=== PATIENT | male | born 1965 | race Caucasian/White ===

== ENCOUNTER 2016-07-17 19:21 | Emergency (ER) | payer MEDICAID ==
[~2016-07-17] VITALS: Ht 193 cm; Wt 139.0 kg
[~2016-07-17 19:21] MED LIST: BACL20TA; CARI350T; FURO40SO4 PO; IND20; LAS20; MORP30TA3; MORP60TA9 PO; SPIR100T31 PO; [UNRECOGNIZED DRUG - CODE] PO; [UNRECOGNIZED DRUG - REMARK]; [UNRECOGNIZED DRUG - REMARK]
[2016-07-17 19:36] VITALS: Ht 193 cm; Wt 139.0 kg
[2016-07-17] MEDS ORDERED: morphine 4 MG/ML VIAL IV STA (23:13)
[2016-07-17] MEDS ORDERED: ONDANSETRON 4 MG INJ IV STA (23:13)
[2016-07-17] MEDS ORDERED: SOD CHLORIDE 0.9% 1,000 ML IV STA (23:13)
[2016-07-17 23:44] LABS: ADD SCAN DIFF NO
[2016-07-17 23:46] LABS: ABNORMAL IP MESSAGE 1; BASOPHILS % 0.3 % (0.0-2.0); EOSINOPHILS # 0.1 10^3/ul (0.0-0.5); EOSINOPHILS % 2.2 % (0.0-7.0); HEMATOCRIT 38.2 % (42.0-52.0); HEMOGLOBIN 12.8 g/dl (14.0-18.0); LYMPHOCYTES # 0.6 10^3/ul (0.8-2.9); LYMPHOCYTES % 16.5 % (15.0-51.0); MEAN CORPUSCULAR HEMOGLOBIN 30.1 pg (29.0-33.0); MEAN CORPUSCULAR HGB CONC 33.5 g/dl (32.0-37.0); MEAN CORPUSCULAR VOLUME 89.9 fl (82.0-101.0); MEAN PLATELET VOLUME 11.4 fl (7.4-10.4); MONOCYTE # 0.4 10^3/ul (0.3-0.9); MONOCYTES % 9.7 % (0.0-11.0); NEUTROPHIL # 2.6 10^3/ul (1.6-7.5); PLATELET COUNT 77 10^3/UL (140-415); RED BLOOD COUNT 4.25 10^6/ul (4.70-6.10); RED CELL DISTRIBUTION WIDTH 16.5 % (11.5-14.5); WHITE BLOOD COUNT 3.7 10^3/ul (4.8-10.8)
[2016-07-17 23:56] LABS: ADD UMIC NO; URINE BILIRUBIN (Dip) NEGATIVE (NEGATIVE); URINE BLOOD (Dip) NEGATIVE (NEGATIVE); URINE COLOR LT. YELLOW (YELLOW); URINE GLUCOSE (Dip) >=1000 % (NEGATIVE); URINE KETONES (Dip) NEGATIVE (NEGATIVE); URINE LEUKOCYTE ESTERASE (Dip) NEGATIVE (NEGATIVE); URINE NITRITE (Dip) NEGATIVE (NEGATIVE); URINE TOTAL PROTEIN (Dip) NEGATIVE (NEGATIVE); URINE UROBILINOGEN (Dip) 0.2 E.U./dL (0.1-1.0)
[2016-07-18] LABS: ALBUMIN 3.6 g/dl (3.3-4.9); BILIRUBIN,INDIRECT 0.5 mg/dl (0-1.1); BILIRUBIN,TOTAL 0.5 mg/dl (0.2-1.3); CALCIUM 9.1 mg/dl (8.4-10.2); CREATININE 1.13 mg/dl (0.61-1.24); TOTAL PROTEIN 7.2 g/dl (6.1-8.1)
--- NOTE | 2016-07-18 00:29 | RADRPT ---
PROCEDURE: CT abdomen and pelvis without intravenous contrast. CLINICAL INDICATION: Pain. TECHNIQUE: CT of the abdomen/pelvis was performed utilizing axial images with reconstructions in s agittal and coronal planes. The administered radiation dose is CTDI 24 mGy, DLP 1608 mGy-cm. COMPARISON: 06/16/2007 FINDINGS: Visualized Chest: The visualized lung bases are clear. Abdomen: The pancreas, and adrenal glands are unremarkable. The liver has diffuse nodular contours compatib le with cirrhosis. There is marked splenomegaly. A stent is noted within the right hepatic vein, c ompatible with prior TIPS procedure. There is enlargement of the hepatic and superior mesenteric vei ns. Prior cholecystectomy is noted. There is trace perihepatic ascites. The kidneys are without hydronephrosis. No definite urinary calculi are seen. There is no evidence of bowel obstruction. The appendix is normal. No intra-abdominal free air is seen. There is no evidence of intra-abdominal adenopathy or free fluid. Pelvis: A lipoma is noted within the left gluteus medius muscle. There is no evidence of pelvic adenopathy or free fluid. The prostate and bladder are unremarkable. Osseous structures: Unremarkable. IMPRESSION: Cirrhotic liver with marked splenomegaly and trace ascites. Status post TIPS procedure. RPTAT: [facility] .Jordy Zimmerman MD, Date Time Electronically viewed and signed by .Jordy Zimmerman MD, on 07/18/2016 00:29 .T/
[2016-07-18] MEDS ORDERED: HYDR-906 PO (01:23)
[2016-07-18] MEDS ORDERED: ONDA-43 PO (01:23)
[2016-07-18] MEDS ORDERED: NAPR-688 PO (01:23)
--- NOTE | 2016-07-18 01:30 | ERD ---
ER Documentation Chief Complaint Date/Time DATE: 07/18/16 TIME: 01:26 Chief Complaint abd pain since yesterday HPI 50-year-old male presents emergency room with generalized abdominal pain that began yesterday. He also has mild nausea but no vomiting. Denies fever and chills. He does have a history of liver failure status post TIPS procedure. He denies diarrhea or constipation. States that aside from liver failure he has no other medical problems. He has not tried taking anything for the pain at home as he does not have any pain medication. He does request Dilaudid on initial history. Reviewed the patient's EMR he has been seen at this hospital and has a prior admission for narcotic overdose. ROS All systems reviewed and are negative except as per history of present illness. Medications Home Meds Active Scripts Ondansetron Hcl* (Zofran*) 4 Mg Tab, 4 MG PO Q4H Y for NAUSEA AND OR VOMITING, # 10 TAB Prov:JAIRO TEMPLE DO 07/18/16 Naproxen* (Naproxen*) 500 Mg Tablet, 500 MG PO BID Y for PAIN, #20 TAB Prov:JAIRO TEMPLE DO 07/18/16 Hydrocodone/Acetaminophen ([place] 5-325 Tablet) 1 Each Tablet, 1 EACH PO Q6, #14 TAB Prov:JAIRO TEMPLE DO 07/18/16 Reported Medications [ states no home meds per EMS] No Conflict Check 11/07/12 Furosemide* (Lasix* Liq) 40 Mg/4 Ml Solution, 40 MG PO PM 10/20/12 Spironolactone* (Spironolactone*) 100 Mg Tablet, 50 MG PO PM 10/20/12 Spironolactone* (Spironolactone*) 100 Mg Tablet, 100 MG PO AM 10/20/12 Morphine Sulfate (MORPHINE SULFATE) 60 Mg Tablet.er, 30 MG PO QID Y 10/20/12 Morphine Sulfate* (Regina*) 150 Mg Cap.er.pel, 150 MG PO TID 10/20/12 Propranolol Hcl* (Inderal*) 20 Mg Tab, 60 BID 10/20/12 Baclofen* (Baclofen*) 20 Mg Tablet, BID 10/20/12 Furosemide (Lasix) 20 Mg Tab, 60 AM 10/20/12 Carisoprodol* (Soma*) 350 Mg Tablet, TID 10/20/12 Morphine Sulfate (Morphine Sulfate ER) 30 Mg Tablet.er 10/20/12 [Pt Said He Has No More Meds] No Conflict Check 06/24/12 Allergies Allergies: Coded Allergies: No Known Drug Allergy (Verified Allergy, Unknown, 11/13/12) PMhx/Soc History of Surgery: Yes (cholecystectomy) Anesthesia Reaction: No Hx Neurological Disorder: Yes (cva) Hx Respiratory Disorders: No Hx Cardiac Disorders: Yes (htn) Hx Psychiatric Problems: No Hx Miscellaneous Medical Probl: Yes (end-stage liver failure/cirrhosis, seizures, DM, hypothryroid) Hx Alcohol Use: No Hx Substance Use: No Hx Tobacco Use: No Smoking Status: Never smoker Physical Exam Vitals Vital Signs Date Time Temp Pulse Resp B/P Pulse Ox O2 Delivery O2 Flow Rate FiO2 07/17/16 19:36 100.3 95 20 136/80 97 Physical Exam Const: [] No distress, obese Head: Atraumatic Eyes: Normal Conjunctiva ENT: Normal External Ears, Nose and Mouth. Neck: Full range of motion..~ No meningismus. Resp: Clear to auscultation bilaterally Cardio: Regular rate and rhythm, no murmurs Abd: Soft, non tender, very mild abdominal distention, tympanic. Normal bowel sounds Skin: No petechiae or rashes Ext: No cyanosis, trace pedal edema Neur: Awake and alert and oriented 3, no focal deficits Psych: Normal Mood and Affect Result Diagram: 07/17/16223407/17/162234 Results 24 hrs Laboratory Tests Test 07/17/16 22:35 07/17/16 22:40 White Blood Count 3.710^3/ul Red Blood Count 4.2510^6/ul Hemoglobin 12.8g/dl Hematocrit 38.2% Mean Corpuscular Volume 89.9fl Mean Corpuscular Hemoglobin 30.1pg Mean Corpuscular Hemoglobin Concent 33.5g/dl Red Cell Distribution Width 16.5% Platelet Count 7710^3/UL Mean Platelet Volume 11.4fl Neutrophils % 71.0% Lymphocytes % 16.5% Monocytes % 9.7% Eosinophils % 2.2% Basophils % 0.3% Nucleated Red Blood Cells % 0.0/100WBC Neutrophils # 2.610^3/ul Lymphocytes # 0.610^3/ul Monocytes # 0.410^3/ul Eosinophils # 0.110^3/ul Basophils # 0.010^3/ul Nucleated Red Blood Cells # 0.010^3/ul Sodium Level 139mmol/L Potassium Level 4.0mmol/L Chloride Level 110mmol/L Carbon Dioxide Level 20mmol/L Anion Gap 13 Blood Urea Nitrogen 13mg/dl Creatinine 1.13mg/dl Glucose Level 377mg/dl Calcium Level 9.1mg/dl Total Bilirubin 0.5mg/dl Direct Bilirubin 0.00mg/dl Indirect Bilirubin 0.5mg/dl Aspartate Amino Transf (AST/SGOT) 39IU/L Alanine Aminotransferase (ALT/SGPT) 38IU/L Alkaline Phosphatase 115IU/L Total Protein 7.2g/dl Albumin 3.6g/dl Globulin 3.60g/dl Albumin/Globulin Ratio 1.00 Lipase 285U/L Urine Color LT. YELLOW Urine Clarity CLEAR Urine pH 5.5 Urine Specific [place] <=1.005 Urine Ketones NEGATIVE Urine Nitrite NEGATIVE Urine Bilirubin NEGATIVE Urine Urobilinogen 0.2 E.U./dL Urine Leukocyte Esterase NEGATIVE Urine Hemoglobin NEGATIVE Urine Glucose >=1000% Urine Total Protein NEGATIVE Current Medications Medications (Trade) Dose Ordered Sig/Alesha Route PRN Reason Start Time Stop Time Status Last Admin Dose Admin Sodium Chloride (NS) 1,000 ml @ 1,000 mls/hr Q1H STAT IV 07/17/16 23:13 07/18/16 00:12 DC 07/17/16 23:25 Morphine Sulfate (morphine) 4 mg ONCE STAT IV 07/17/16 23:13 07/17/16 23:14 DC 07/17/16 23:25 Ondansetron HCl (Zofran Inj) 4 mg ONCE STAT IV 07/17/16 23:13 07/17/16 23:14 DC 07/17/16 23:25 Procedures/MDM Generalized abdominal pain with benign physical exam. No evidence for acute infection. I have low suspicion for SBP. Patient only has trace ascites and does have tympanic abdomen evidence of some gas although no signs of obstruction. Was given 4 mg of morphine as well as Zofran which resolved his nausea and improved his pain. Also given a liter of normal saline to help treat his diabetic hyperglycemia. Patient has very mild pancytopenia which is at baseline associated with his hepatic condition. We will discharge him with primary care follow-up in the next few days. Incidentally found on CT was a gluteal lesion. I printed his CAT scan results as well as laboratory to begin follow-up with his primary care doctor. Can discharge him with a few [place] as well as Zofran and naproxen for pain. Return to ER as needed. CT abdomen pelvis interpretation: Evidence of prior TIPS procedure, I see no obstruction, no free air, no abnormal fat stranding, no fractures Departure Diagnosis: Primary Impression: Abdominal pain Additional Impression: Hyperglycemia Condition: Stable Patient Instructions: Abdominal Pain Referrals: MAIKOL KRUGER MD (PCP) Additional Instructions: Call your primary care doctor TOMORROW for an appointment during the next 2-3 days.See the doctor sooner or return here if your condition worsens before your appointment time. JAIRO TEMPLE DO Jul 18, 2016 01:30
[2016-07-18 02:01] VITALS: BP 136/80; PULSE 69; RESP 20; TEMP 98.8
== END 2016-07-18 02:01 | disposition home or self-care (01) ==
LOC: E/R 19:21
DX: R10.84 Generalized abdominal pain (principal); E11.65 Type 2 diabetes mellitus with hyperglycemia; I10 Essential (primary) hypertension; E03.9 Hypothyroidism, unspecified; R11.0 Nausea
CPT/HCPCS: 36415; 74176; 80053; 81003; 83690; 85025; 96374; 96375; J2270; J2405; J7030; Z7502

== ENCOUNTER 2016-07-27 15:16 | Inpatient (IN) | payer MEDICAID ==
[~2016-07-27] VITALS: Ht 193 cm; Wt 138.5 kg
[~2016-07-27 15:16] MED LIST changes: +HYDR-906 PO; +NAPR-688 PO; +ONDA-43 PO
[2016-07-27] MEDS ORDERED: OCTREOTIDE 50 MCG in SOD CHLORIDE 0.9% 25 ML IVPB STA (16:25)
[2016-07-27] MEDS ORDERED: OCTREOTIDE 500 MCG in SOD CHLORIDE 0.9% 49 ML IV STA (16:25)
[2016-07-27] MEDS ORDERED: SOD CHLORIDE 0.9% 500 ML IV STA (16:25)
[2016-07-27] MEDS ORDERED: PANTOPRAZOLE IV 80 MG in SOD CHLORIDE 0.9% 100 ML IVPB STA (16:25)
[2016-07-27] MEDS ORDERED: PANTOPRAZOLE IV 80 MG in SOD CHLORIDE 0.9% 100 ML IV STA (16:25)
[2016-07-27 16:44] LABS: ABNORMAL IP MESSAGE 1; HEMATOCRIT 33.1 % (42.0-52.0); HEMOGLOBIN 11.3 g/dl (14.0-18.0); MEAN CORPUSCULAR HEMOGLOBIN 30.4 pg (29.0-33.0); MEAN CORPUSCULAR HGB CONC 34.1 g/dl (32.0-37.0); MEAN PLATELET VOLUME 11.1 fl (7.4-10.4); RED BLOOD COUNT 3.72 10^6/ul (4.70-6.10); RED CELL DISTRIBUTION WIDTH 16.4 % (11.5-14.5); WHITE BLOOD COUNT 6.3 10^3/ul (4.8-10.8)
[2016-07-27] MEDS ORDERED: FURO40TA4 PO (16:52)
[2016-07-27] MEDS ORDERED: LACT10SO5 PO (16:52)
[2016-07-27] MEDS ORDERED: PROP40TA4 PO (16:53)
[2016-07-27] MEDS ORDERED: GABA400C14 PO (16:54)
[2016-07-27] MEDS ORDERED: TRAZ150T65 PO (16:55)
[2016-07-27 16:58] LABS: ALBUMIN 3.4 g/dl (3.3-4.9)
[2016-07-27 16:59] LABS: INR 1.66; POTASSIUM 4.1 mmol/L (3.5-5.1); PROTIME 19.7 Sec (12.2-14.2); PT RATIO 1.5
[2016-07-27 17:00] LABS: PARTIAL THROMBOPLASTIN TIME 38.1 Sec (25.0-35.0)
[2016-07-27 17:01] LABS: ALBUMIN/GLOBULIN RATIO 0.97; BILIRUBIN,INDIRECT 2.4 mg/dl (0-1.1); BILIRUBIN,TOTAL 2.4 mg/dl (0.2-1.3); CREATININE 1.99 mg/dl (0.61-1.24); TOTAL PROTEIN 6.9 g/dl (6.1-8.1)
[2016-07-27 17:02] LABS: D-DIMER 1456.39 ng/ml (<460)
[2016-07-27] MEDS ORDERED: RIFA550T4 PO (17:02)
[2016-07-27 17:04] LABS: ADD SCAN DIFF YES
[2016-07-27] MEDS ORDERED: OXYC30TA64 PO (17:04)
[2016-07-27] MEDS ORDERED: METH10TA2 PO (17:06)
[2016-07-27 17:10] LABS: PLATELET COUNT 43 10^3/UL (140-415)
[2016-07-27 17:14] LABS: TROPONIN-I 0.026 ng/ml (0.00-0.12)
--- NOTE | 2016-07-27 18:40 | RADRPT ---
PROCEDURE: CT Chest. CLINICAL INDICATION: Hemoptysis TECHNIQUE: CT scan of the chest without contrast was performed on the [employer] [place] CT scanner at [facility]. Sagittal and coronal reformatted images were obtained from the axial [facility] images. The CTDIvol is 16.59 mGy and the DLP is 712.81 mGycm. One of the following 3 dose reduction techniques were used: Automated exposure control; adjustment of the mA and/or kV according to patient size; or use of iterative reconstruction technique. COMPARISON: Chest x-ray 11/11/2012 FINDINGS: The bilateral thyroid lobes are normal. The lungs are remarkable for multilobar alveolar infiltrates in the left upper greater than left low er greater than right lower lobes. No associated pleural effusions are present. The appearance of a 9 mm spiculated nodule is present in the right upper lobe. The mediastinum is unremarkable without evidence for mass or lymphadenopathy. The vascular structur es of the mediastinum are normal in course and caliber. Aortic vascular calcifications and coronary artery calcifications are present. The heart size is remarkable for moderate cardiomegaly without e vidence for pericardial thickening or effusion. The axillary regions, subpectoral regions, and supraclavicular regions are all unremarkable. The pat ient is status post TIPS procedure with portosystemic shunt noted. The patient is status post alvin cystectomy changes. Diffuse fatty infiltration of the liver is present with scalloped serosal surfa ce compatible with cirrhosis. No focal lesions are identified on this limited CT without intravenou s contrast. Splenomegaly is present. The visualized bilateral adrenal glands and imaged kidneys are normal. The imaged osseous structures demonstrate degenerative spondylosis. IMPRESSION: 1. Diffuse multilobar alveolar infiltrates compatible with pneumonia. Recommend follow-up until re solution. 2. 9 mm right upper lobe spiculated nodule suspicious for neoplasm or metastasis. Consider PET CT. 3. No evidence for pathologic lymphadenopathy. 4. Moderate cardiomegaly and atherosclerotic vascular disease 5. Hepatic cirrhosis and mild splenomegaly with TIPS present. A call report was made to Vahid Pacheco at 07/27/2016 6:38:39 PM following the completion of th e examination by the undersigned. RPTAT: [facility] .Caroline Blanc MD, MD Date Time Electronically viewed and signed by .Caroline Blanc MD, MD on 07/27/2016 18:40 .C/
[2016-07-27] MEDS ORDERED: CEFEPIME 2GM/50 ML (PMX) 50 ML IVPB STA (18:43)
[2016-07-27] MEDS ORDERED: ACETAMINOPHEN 500 MG TAB PO STA (18:43)
[2016-07-27] MEDS ORDERED: SODIUM CHLORIDE 0.9% 1L BAG IV* STA (18:43)
[2016-07-27] MEDS ORDERED: VANCOMYCIN 1 GM (PMX) 250 ML IVPB STA (18:43)
[2016-07-27] MEDS ORDERED: SOD CHLORIDE 0.9% 1,000 ML IV SCH (19:17)
--- NOTE | 2016-07-27 19:26 | ERA ---
ER Documentation Chief Complaint Date/Time DATE: 07/27/16 TIME: 19:19 Chief Complaint vomiting blood since morning x 4 , abd pain HPI This is a 50-year-old male who states he woke this morning and started coughing and gagging any says he threw up a small blood clot onto the floor. He said he subsequently began coughing more throughout the morning is coughing up some bloody sputum. He says he has had subjective fevers for the past 2 or 3 days with a cough mostly dry with occasional sputum production. He has no shortness of breath or chest pain. Patient is a liver cirrhosis patient with history of a TIPS procedure. He has also had his history of bleeding varices. He denies having any melena or abdominal pain. ROS All systems reviewed and are negative except as per history of present illness. Medications Home Meds Reported Medications Methadone Hcl* (Methadone*) 10 Mg Tab, 30 MG PO TID, TAB 07/27/16 Oxycodone Hcl* (Oxycontin*) 30 Mg Tab.sr.12h, 30 MG PO QID, TAB 07/27/16 Rifaximin* (Xifaxan*) 550 Mg Tablet, 550 MG PO BID, TAB 07/27/16 Trazodone Hcl* (Desyrel*) 150 Mg Tablet, 150 MG PO QHS Y for PRN, #30 TAB 07/27/16 Gabapentin* (Gabapentin*) 400 Mg Capsule, 400 MG PO TID, #90 CAP 07/27/16 Propranolol Hcl* (Propranolol Hcl*) 40 Mg Tablet, 40 MG PO BID, TAB 07/27/16 Furosemide* (Furosemide*) 40 Mg Tablet, 40 MG PO BID, TAB 07/27/16 Lactulose* (Lactulose*) 10 Gm/15 Ml Solution, 10 GM PO TID, ML 07/27/16 Discontinued Reported Medications [ states no home meds per EMS] No Conflict Check 11/07/12 Furosemide* (Lasix* Liq) 40 Mg/4 Ml Solution, 40 MG PO PM 10/20/12 Spironolactone* (Spironolactone*) 100 Mg Tablet, 50 MG PO PM 10/20/12 Spironolactone* (Spironolactone*) 100 Mg Tablet, 100 MG PO AM 10/20/12 Morphine Sulfate (MORPHINE SULFATE) 60 Mg Tablet.er, 30 MG PO QID Y 10/20/12 Morphine Sulfate* (Regina*) 150 Mg Cap.er.pel, 150 MG PO TID 10/20/12 Propranolol Hcl* (Inderal*) 20 Mg Tab, 60 BID 10/20/12 Baclofen* (Baclofen*) 20 Mg Tablet, BID 10/20/12 Furosemide (Lasix) 20 Mg Tab, 60 AM 10/20/12 Carisoprodol* (Soma*) 350 Mg Tablet, TID 10/20/12 Morphine Sulfate (Morphine Sulfate ER) 30 Mg Tablet.er 10/20/12 [Pt Said He Has No More Meds] No Conflict Check 06/24/12 Discontinued Scripts Ondansetron Hcl* (Zofran*) 4 Mg Tab, 4 MG PO Q4H Y for NAUSEA AND OR VOMITING, # 10 TAB Prov:JAIRO TEMPLE DO 07/18/16 Naproxen* (Naproxen*) 500 Mg Tablet, 500 MG PO BID Y for PAIN, #20 TAB Prov:JAIRO TEMPLE DO 07/18/16 Hydrocodone/Acetaminophen ([place] 5-325 Tablet) 1 Each Tablet, 1 EACH PO Q6, #14 TAB Prov:MAVERICKJAIRO DO 07/18/16 Allergies Allergies: Coded Allergies: No Known Drug Allergy (Verified Allergy, Unknown, 07/27/16) PMhx/Soc History of Surgery: Yes (cholecystectomy) Anesthesia Reaction: No Hx Neurological Disorder: Yes (cva) Hx Respiratory Disorders: No Hx Cardiac Disorders: Yes (htn) Hx Psychiatric Problems: No Hx Miscellaneous Medical Probl: Yes (end-stage liver failure/cirrhosis, seizures, DM, hypothryroid) Hx Alcohol Use: No Hx Substance Use: No Hx Tobacco Use: No Smoking Status: Unknown if ever smoked FmHx Family History: No coronary disease Physical Exam Vitals Vital Signs Date Time Temp Pulse Resp B/P Pulse Ox O2 Delivery O2 Flow Rate FiO2 07/27/16 18:26 Nasal Cannula 4 07/27/16 15:19 100.6 89 18 128/64 91 Physical Exam Const: Well-developed, well-nourished Head: Atraumatic, normocephalic Eyes: Normal Conjunctiva, PERRLA, EOMI, normal sclera, no nystagmus ENT: Normal External Ears, Nose and Mouth, moist mucus membranes. Neck: Full range of motion. No meningismus, no lymphadenopathy. Resp: Decreased breath sounds bibasilar and mid lung marrero no increased work of breathing Cardio: Regular rate and rhythm, no murmurs, S1 S2 present Abd: Soft, non tender x 4, slight distended. Normal bowel sounds, no guarding or rebound, no pulsitile abdominal masses or bruits Skin: No petechiae or rashes, no ecchymosis , no maculopapular rash Back: No midline or flank tenderness Ext: No cyanosis, or edema, FROM x 4, normal inspection, neurovascularly intact x 4 Neur: Awake and alert, STR 5/5 x 4, sensation intact x 4, no focal findings, cerebellum intact Psych: Normal Mood and Affect Result Diagram: 07/27/16 1630 07/27/16 1630 Results 24 hrs Laboratory Tests Test 07/27/16 16:30 White Blood Count 6.310^3/ul Red Blood Count 3.7210^6/ul Hemoglobin 11.3g/dl Hematocrit 33.1% Mean Corpuscular Volume 89.0fl Mean Corpuscular Hemoglobin 30.4pg Mean Corpuscular Hemoglobin Concent 34.1g/dl Red Cell Distribution Width 16.4% Platelet Count 4310^3/UL Mean Platelet Volume 11.1fl Neutrophils % % Eosinophils % % Neutrophils # 10^3/ul Eosinophils # 10^3/ul Prothrombin Time 19.7Sec Prothrombin Time Ratio 1.5 INR International Normalized Ratio 1.66 Activated Partial Thromboplast Time 38.1Sec D-Dimer 1456.39ng/ml D-Dimer Comment Sodium Level 134mmol/L Potassium Level 4.1mmol/L Chloride Level 100mmol/L Carbon Dioxide Level 21mmol/L Anion Gap 17 Blood Urea Nitrogen 36mg/dl Creatinine 1.99mg/dl Glucose Level 247mg/dl Calcium Level 8.0mg/dl Total Bilirubin 2.4mg/dl Direct Bilirubin 0.00mg/dl Indirect Bilirubin 2.4mg/dl Aspartate Amino Transf (AST/SGOT) 43IU/L Alanine Aminotransferase (ALT/SGPT) 41IU/L Alkaline Phosphatase 48IU/L Troponin I 0.026ng/ml Total Protein 6.9g/dl Albumin 3.4g/dl Globulin 3.50g/dl Albumin/Globulin Ratio 0.97 Current Medications Medications (Trade) Dose Ordered Sig/Alesha Route PRN Reason Start Time Stop Time Status Last Admin Dose Admin Sodium Chloride 500 ml @ 500 mls/hr Q1H STAT IV 07/27/16 16:25 07/27/16 17:24 DC 07/27/16 17:07 Pantoprazole 80 mg/Sodium Chloride 100 ml @ 400 mls/hr ONCE STAT IVPB 07/27/16 16:25 07/27/16 16:39 DC 07/27/16 17:07 Pantoprazole 80 mg/Sodium Chloride 100 ml @ 10 mls/hr ONCE STAT IV 07/27/16 16:25 07/28/16 02:24 07/27/16 17:30 Octreotide Acetate 50 mcg/ Sodium Chloride 26 ml @ 100 mls/hr Q16M STAT IVPB 07/27/16 16:25 07/27/16 16:40 DC 07/27/16 17:25 Octreotide Acetate/Sodium Chloride (Sandostatin/NS) 50 ml @ 5 mls/hr ONCE STAT IV 07/27/16 16:25 07/28/16 02:24 07/27/16 17:30 Sodium Chloride 4290 ml 4,290 ml BOLUS OVER 2 HOURS STAT IV* 07/27/16 18:43 07/27/16 18:46 DC Vancomycin HCl 250 ml @ 125 mls/hr ONCE STAT IVPB 07/27/16 18:43 07/27/16 20:42 Cefepime HCl (Maxipime 2gm/50 ml (Pmx)) 50 ml @ 100 mls/hr ONCE STAT IVPB 07/27/16 18:43 07/27/16 19:12 DC Acetaminophen (Tylenol Tab) 1,000 mg ONCE STAT PO 07/27/16 18:43 07/27/16 18:46 DC Procedures/MDM PROCEDURE: CT Chest. CLINICAL INDICATION: Hemoptysis TECHNIQUE: CT scan of the chest without contrast was performed on the [employer] CT scanner at [facility]. Sagittal and coronal reformatted images were obtained from the axial source images. The CTDIvol is 16.59 mGy and the DLP is 712.81 mGycm. One of the following 3 dose reduction techniques were used: Automated exposure control; adjustment of the mA and/or kV according to patient size; or use of iterative reconstruction technique. COMPARISON: Chest x-ray 11/11/2012 FINDINGS: The bilateral thyroid lobes are normal. The lungs are remarkable for multilobar alveolar infiltrates in the left upper greater than left lower greater than right lower lobes. No associated pleural effusions are present. The appearance of a 9 mm spiculated nodule is present in the right upper lobe. The mediastinum is unremarkable without evidence for mass or lymphadenopathy. The vascular structures of the mediastinum are normal in course and caliber. Aortic vascular calcifications and coronary artery calcifications are present. The heart size is remarkable for moderate cardiomegaly without evidence for pericardial thickening or effusion. The axillary regions, subpectoral regions, and supraclavicular regions are all unremarkable. The patient is status post TIPS procedure with portosystemic shunt noted. The patient is status post cholecystectomy changes. Diffuse fatty infiltration of the liver is present with scalloped serosal surface compatible with cirrhosis. No focal lesions are identified on this limited CT without intravenous contrast. Splenomegaly is present. The visualized bilateral adrenal glands and imaged kidneys are normal. The imaged osseous structures demonstrate degenerative spondylosis. IMPRESSION: 1. Diffuse multilobar alveolar infiltrates compatible with pneumonia. Recommend follow-up until resolution. 2. 9 mm right upper lobe spiculated nodule suspicious for neoplasm or metastasis. Consider PET CT. 3. No evidence for pathologic lymphadenopathy. 4. Moderate cardiomegaly and atherosclerotic vascular disease 5. Hepatic cirrhosis and mild splenomegaly with TIPS present. A call report was made to Vahid Arteaga at 07/27/2016 6:38:39 PM following the completion of the examination by the undersigned. RPTAT: [facility] .Caroline Blanc MD, MD Date Time Electronically viewed and signed by .Caroline Blanc MD, on 07/27/2016 18: 40 .C/ CC: VAHID ARTEAGA DO Patient could not get IV dye for the CT AngioJet is to elevated creatinine so CT was done without contrast revealing multi lobar pneumonia. There is also a spiculated right upper lobe mass. Blood and urine cultures have been drawn is been given cefepime and vancomycin. He does not appear septic whatsoever Lactic acid has been sent due to multilobar pneumonia and fever. He has been given sepsis IV fluids Spoke with panel doctor for admission Departure Diagnosis: Primary Impression: Pneumonia Qualified Code: J18.9 - Pneumonia of both lower lobes due to infectious organism Additional Impression: Hemoptysis Condition: Stable VAHID ARTEAGA DO July 27, 2016 19:26
[2016-07-27 19:29] LABS: LYMPHOCYTES # 0.3 10^3/ul (0.8-2.9); MONOCYTE # 0.4 10^3/ul (0.3-0.9); NEUTROPHIL # 4.7 10^3/ul (1.6-7.5)
[2016-07-27 19:30] LABS: ANISOCYTOSIS OCCASIONAL; MICROCYTOSIS OCCASIONAL; PLATELET ESTIMATE PLT APPEAR DECREASED
[2016-07-27] MEDS ORDERED: ONDANSETRON 4 MG INJ IV PRN (19:30)
[2016-07-27] MEDS ORDERED: ACETAMINOPHEN 325 MG TAB PO PRN (19:30)
[2016-07-27 21:10] VITALS: PULSE 77; Ht 193 cm; Wt 138.5 kg
[2016-07-27 21:19] VITALS: BP 100/59; RESP 18
--- NOTE | 2016-07-27 21:50 | HP ---
Date/Time of Note Date/Time of Note DATE: 07/27/16 TIME: 21:20 Assessment/Plan VTE Prophylaxis VTE Prophylaxis Intervention: SCD's VTE Contraindication Reason: bleeding Lines/Catheters Central line still needed: No Urinary Cath still in place: No Assessment/Plan Chief Complaint/Hosp Course This is a 50-year-old male being admitted to telemetry for #1Multilobular PNA: Patient was febrile with temperature 100.[address] scan showed evidence of multilobular pneumonia. With patient's comorbidities at the current time will treat with cefepime IV and Levaquin IV. He did receive an empiric course of antibiotics in the ED. Will follow blood cultures and order any sputum cultures as indicated and adjust antibiotics based on the clinical picture. Lactate 1.7. White blood cell count was within normal limits. Continue to monitor for fevers. #2Hematemsis/hemoptysis: Patient reports bleeding via the oral tract at this time unsure whether this is a GI source or pulmonary source. Patient does have a history of cirrhosis and TIPS procedure and esophageal varices. The current time we will continue him on propranolol and octreotide and Protonix. Will consult GI for further evaluation. Pulmonology is also consulted and will appreciate their input as well. We will keep the patient n.p.o. #3 SHANDA: Creatinine 1.99 this likely appears to be prerenal in etiology likely dehydration. At the current time in the setting of the patient's liver cirrhosis. I will currently hold Lasix. He did receive fluids in the ED and I will give him another 500 cc bolus. I will also give albumin and will continue to follow this and manage fluids as gently as we can #4Cirrhosis: Patient does not appear to be encephalopathic. At the current time will provide gentle fluid management and hold diuretics. Will also provide albumin. We will hold lactulose Xifaxan and Lasix at the current time. Hold lactulose. Resume medications once cleared by GI #5 Elevated D-Dimer: Patient patient was to undergo CTA in the ED however because of the elevated creatinine he was unable to do so. At the current time we will continue management for pneumonia treatment. Once the kidney function improves will reconsider whether we need to order a CTA of the chest.. #6 Nine (9) mm spiculated mass in the right upper lobe: Patient does report that he had a previous history of TB as a kid and he reports that this nodule may have been pointed out to him before. At this time will have pulmonology evaluate this finding as well as #1 and 2. #7 hepatitis C: Stable continue to monitor liver function #8 previous history of tuberculosis: At the current time no treatment were needed. However we will have pulmonology come in to evaluate for #6. #9 chronic pain: Patient is on methadone and oxycodone we will try to obtain outpatient methadone paperwork from primary care doctor. I right now will provide morphine for pain control #10 GI DVT prophylaxis at the current time will start patient on SCDs and Protonix Problems: HPI/ROS Admit Date/Time Admit Date/Time July 27, 2016 at 19:18 Hx of Present Illness This is a 50-year-old male who states he woke this morning and started coughing and gagging any says he threw up a small blood clot onto the floor. He said he subsequently began coughing more throughout the morning is coughing up some bloody sputum. He says he has had subjective fevers for the past 2 or 3 days with a cough mostly dry with occasional sputum production. He has no shortness of breath or chest pain. Patient is a liver cirrhosis patient with history of a TIPS procedure. He has also had his history of bleeding varices. He denies having any melena or abdominal pain. He previously was on the transplant list. However because he got sick he is to go now in approximately 9 months for another evaluation. Allergies: None Medications: See MALAIKA BLEVINS Const: Negative except for what stated in the HPI Eyes : No pain discharge or redness or change in visual acuity ENT: No pain, sore throat, congestion, congestion, dysphagia or discharge Respiratory: Negative except for was in the HPI Cardiovascular: No chest pain, palpitation, PND, or edema GI : Negative except for what stated in the HPI Genitourinary: No dysuria, hematuria, flank pain , discharge or CVA tenderness Musculoskeletal: Trace edema of the right lower extremity Skin: No rash, bruising or hives Neuro: No headache, dizziness, syncope, seizure, focal weakness Endocrine: No polyuria, polydipsia, temperature intolerance Psych: No hallucination, depression, anxiety or suicidal ideation PMH/Family/Social Past Medical History Cirrhosis, hepatitis C, 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, tuberculosis as a child Past Surgical History Right tumor removal, cholecystectomy, resection of small bowel, nasal surgery Family History Significant Family History: other (Mom: Hepatitis C) Social History Alcohol Use: none Smoking Status: Never smoker Drug Use: none Exam/Review of Systems Vital Signs Vitals Vital Signs Date Time Temp Pulse Resp B/P Pulse Ox O2 Delivery O2 Flow Rate FiO2 07/27/16 21:10 77 07/27/16 20:15 16 109/63 95 Room Air 07/27/16 18:26 4 07/27/16 15:19 100.6 Exam Exam General: Patient is an obese male in no acute distress The patient is alert oriented -3 HEENT: Atraumatic, normocephalic. The pupils are equal, round and reactive. Extraocular motor are intact, no scleral icterus Neck: Supple with full range of motion. No rigidity or meningismus Chest: Nontender Lungs: Coarse breath sounds throughout lung marrero, no wheezing Heart: Normal S1-S2, Regular rhythm and rate. No murmur, S3, or S4 Abdomen: Soft, but distended no fluid wave, positive bowel sounds Extremities: Normal to inspection, no edema no cyanosis Neurologic: Normal mental status, speech normal, cranial nerves II through XII are intact, motor and sensory are intact, no focal weakness Additional Comments CT of abdomen and Pelvis 1. Diffuse multilobar alveolar infiltrates compatible with pneumonia. Recommend follow-up until resolution. 2. 9 mm right upper lobe spiculated nodule suspicious for neoplasm or metastasis. Consider PET CT. 3. No evidence for pathologic lymphadenopathy. 4. Moderate cardiomegaly and atherosclerotic vascular disease 5. Hepatic cirrhosis and mild splenomegaly with TIPS present. Labs Result Diagram: 07/27/16 1630 07/27/16 1630 Medications Medications Current Medications Sodium Chloride (NS) 1,000 ml @ 80 mls/hr [id number] IV ; Start 07/27/16 at 19:17; Stop 07/28/16 at 07:46 HOLLIE HASKINS July 27, 2016 21:30
[2016-07-27] MEDS ORDERED: PROPRANOLOL 1 MG INJ IV ONE (22:00)
[2016-07-27] MEDS ORDERED: NACL 0.9% 3 ML SYG IV SCH (22:00)
[2016-07-27] MEDS ORDERED: SOD CHLORIDE 0.9% 500 ML IV ONE (22:00)
[2016-07-27] MEDS: morphine 2 MG INJ IV SCH (22:59)
[2016-07-27] MEDS ORDERED: ALBUMIN HUMAN 25% 100 ML IV ONE (23:30)
[2016-07-28] VITALS (13 sets, daily range): BP systolic 115–144; BP diastolic 57–88; PULSE 69–80; RESP 16–18
[2016-07-28 01:05] LABS: HEMATOCRIT 31.7 % (42.0-52.0); HEMOGLOBIN 10.3 g/dl (14.0-18.0)
[2016-07-28] MEDS: OCTREOTIDE 1 MG in SOD CHLORIDE 0.9% 95 ML IV SCH (01:26)
[2016-07-28] MEDS: LEVOFLOXACIN 750MG/D5W (PMX) 150 ML IVPB SCH ×2 (01:27→23:43)
[2016-07-28] MEDS: morphine 2 MG INJ IV SCH ×6 (02:00→22:08)
[2016-07-28] MEDS: PANTOPRAZOLE 40 MG INJ IV SCH ×2 (05:39→18:28)
[2016-07-28 08:12] LABS: ALBUMIN 3.4 g/dl (3.3-4.9); ALBUMIN/GLOBULIN RATIO 1.09; BILIRUBIN,INDIRECT 1.5 mg/dl (0-1.1); BILIRUBIN,TOTAL 1.5 mg/dl (0.2-1.3); CALCIUM 7.4 mg/dl (8.4-10.2); CREATININE 1.41 mg/dl (0.61-1.24); POTASSIUM 4.7 mmol/L (3.5-5.1); TOTAL PROTEIN 6.5 g/dl (6.1-8.1)
[2016-07-28] MEDS: CEFEPIME 1GM/50 ML (PMX) 50 ML IVPB SCH ×2 (08:42→20:29)
[2016-07-28 08:59] LABS: HEMATOCRIT 31.7 % (42.0-52.0); HEMOGLOBIN 10.4 g/dl (14.0-18.0)
--- NOTE | 2016-07-28 10:52 | CONS ---
Date/Time of Note Date/Time of Note DATE: 07/28/16 TIME: 10:52 Consultation Date/Type/Reason Admit Date/Time July 27, 2016 at 19:18 Date of Consultation: July 28, 2016 Type of Consultation: pulmonary Reason for Consultation dictated. # [id number] obtain follow up cxr 07-30-16 Social History Alcohol Use: none Smoking Status: Never smoker Drug Use: none Exam/Review of Systems Vital Signs Vitals Vital Signs Date Time Temp Pulse Resp B/P Pulse Ox O2 Delivery O2 Flow Rate FiO2 07/28/16 08:19 71 07/28/16 08:03 97.9 18 133/88 91 07/27/16 21:10 Nasal Cannula 4.0 Intake and Output 07/27/16 07/27/16 07/28/16 15:00 23:00 07:00 Intake Total 120 ml Output Total 750 ml Balance -630 ml Results Result Diagram: 07/28/16 0719 07/28/16 0719 Results 24 hrs Laboratory Tests Test 07/27/16 16:30 07/27/16 19:10 07/27/16 21:45 07/27/16 23:39 White Blood Count 6.3 # Red Blood Count 3.72 L Hemoglobin 11.3 L Hematocrit 33.1 L Mean Corpuscular Volume 89.0 Mean Corpuscular Hemoglobin 30.4 Mean Corpuscular Hemoglobin Concent 34.1 Red Cell Distribution Width 16.4 H Platelet Count 43 #L Mean Platelet Volume 11.1 H Neutrophils % 75.0 Band Neutrophils % 15.0 H Lymphocytes % 4.0 L Monocytes % 6.0 Eosinophils % Neutrophils # 4.7 Lymphocytes # 0.3 L Monocytes # 0.4 Eosinophils # Platelet Estimate PLT APPEAR DECREASED Anisocytosis OCCASIONAL Microcytosis OCCASIONAL Prothrombin Time 19.7 H Prothrombin Time Ratio 1.5 INR International Normalized Ratio 1.66 Activated Partial Thromboplast Time 38.1 H D-Dimer 1456.39 H D-Dimer Comment Sodium Level 134 L Potassium Level 4.1 Chloride Level 100 Carbon Dioxide Level 21 Anion Gap 17 H Blood Urea Nitrogen 36 H Creatinine 1.99 H Glucose Level 247 H Calcium Level 8.0 L Total Bilirubin 2.4 H Direct Bilirubin 0.00 Indirect Bilirubin 2.4 H Aspartate Amino Transf (AST/SGOT) 43 Alanine Aminotransferase (ALT/SGPT) 41 Alkaline Phosphatase 48 Troponin I 0.026 Total Protein 6.9 Albumin 3.4 Globulin 3.50 H Albumin/Globulin Ratio 0.97 Lactic Acid Level 1.7 1.7 2.7 H Test 07/28/16 00:38 07/28/16 07:19 Hemoglobin 10.3 L 10.4 L Hematocrit 31.7 L 31.7 L Sodium Level 136 Potassium Level 4.7 Chloride Level 108 Carbon Dioxide Level 21 Anion Gap 12 Blood Urea Nitrogen 30 H Creatinine 1.41 H Glucose Level 159 Hemoglobin A1c 6.3 H Calcium Level 7.4 L Total Bilirubin 1.5 H Direct Bilirubin 0.00 Indirect Bilirubin 1.5 H Aspartate Amino Transf (AST/SGOT) 35 Alanine Aminotransferase (ALT/SGPT) 43 Alkaline Phosphatase 51 Total Protein 6.5 Albumin 3.4 Globulin 3.10 Albumin/Globulin Ratio 1.09 Medications Medications Current Medications Ondansetron HCl (Zofran Inj) 4 mg Q6H PRN IV NAUSEA AND/OR VOMITING; Start 07/27 at 22:00 Morphine Sulfate (morphine) 2 mg Q4H IV Last administered on 07/28/16 08:43; Admin Dose 2 MG; Start 07/27/16 at 22:00 Pantoprazole 40 mg 40 mg BID@06,18 IV Last administered on 07/28/16 05:39; Admin Dose 40 MG; Start 07/28/16 at 06:00 Cefepime HCl 50 ml @ 100 mls/hr Q12 IVPB Last administered on 07/28/16 08:42; Admin Dose 100 MLS/HR; Start 07/28/16 at 09:00 Levofloxacin/ Dextrose 150 ml @ 100 mls/hr Q24H IVPB Last administered on 01:27; Admin Dose 100 MLS/HR; Start 07/27/16 at 23:00 Octreotide Acetate/Sodium Chloride (Sandostatin/NS) 100 ml @ 5 mls/hr Q20H IV Last administered on 07/28/16 01:26; Admin Dose 5 MLS/HR; Start 07/28/16 at 02:00 JOSSE ROSARIO July 28, 2016 10:52
[2016-07-28 13:05] LABS: HEMATOCRIT 31.6 % (42.0-52.0); HEMOGLOBIN 10.3 g/dl (14.0-18.0)
--- NOTE | 2016-07-28 13:05 | CONS ---
Date/Time of Note Date/Time of Note DATE: 07/28/16 TIME: 13:03 Assessment/Plan Assessment/Plan Additional Assessment/Plan HISTORY AND PHYSICAL Date/Time of Note Date/Time of Note DATE: 07/27/16 TIME: 21:20 Assessment/Plan VTE Prophylaxis VTE Prophylaxis Intervention: SCD's VTE Contraindication Reason: bleeding Lines/Catheters Central line still needed: No Urinary Cath still in place: No Assessment/Plan Chief Complaint/Hosp Course This is a 50-year-old male being admitted to telemetry for #1Multilobular PNA: Patient was febrile with temperature 100.[address] scan showed evidence of multilobular pneumonia. With patient's comorbidities at the current time will treat with cefepime IV and Levaquin IV. He did receive an empiric course of antibiotics in the ED. Will follow blood cultures and order any sputum cultures as indicated and adjust antibiotics based on the clinical picture. Lactate 1.7. White blood cell count was within normal limits. Continue to monitor for fevers. #2Hematemsis/hemoptysis: Patient reports bleeding via the oral tract at this time unsure whether this is a GI source or pulmonary source. Patient does have a history of cirrhosis and TIPS procedure and esophageal varices. The current time we will continue him on propranolol and octreotide and Protonix. Will consult GI for further evaluation. Pulmonology is also consulted and will appreciate their input as well. We will keep the patient n.p.o. #3 SHANDA: Creatinine 1.99 this likely appears to be prerenal in etiology likely dehydration. At the current time in the setting of the patient's liver cirrhosis. I will currently hold Lasix. He did receive fluids in the ED and I will give him another 500 cc bolus. I will also give albumin and will continue to follow this and manage fluids as gently as we can #4Cirrhosis: Patient does not appear to be encephalopathic. At the current time will provide gentle fluid management and hold diuretics. Will also provide albumin. We will hold lactulose Xifaxan and Lasix at the current time. Hold lactulose. Resume medications once cleared by GI #5 Elevated D-Dimer: Patient patient was to undergo CTA in the ED however because of the elevated creatinine he was unable to do so. At the current time we will continue management for pneumonia treatment. Once the kidney function improves will reconsider whether we need to order a CTA of the chest.. #6 Nine (9) mm spiculated mass in the right upper lobe: Patient does report that he had a previous history of TB as a kid and he reports that this nodule may have been pointed out to him before. At this time will have pulmonology evaluate this finding as well as #1 and 2. #7 hepatitis C: Stable continue to monitor liver function #8 previous history of tuberculosis: At the current time no treatment were needed. However we will have pulmonology come in to evaluate for #6. #9 chronic pain: Patient is on methadone and oxycodone we will try to obtain outpatient methadone paperwork from primary care doctor. I right now will provide morphine for pain control #10 GI DVT prophylaxis at the current time will start patient on SCDs and Protonix Problems: HPI/ROS Admit Date/Time Admit Date/Time July 27, 2016 at 19:18 Hx of Present Illness This is a 50-year-old male who states he woke this morning and started coughing and gagging any says he threw up a small blood clot onto the floor. He said he subsequently began coughing more throughout the morning is coughing up some bloody sputum. He says he has had subjective fevers for the past 2 or 3 days with a cough mostly dry with occasional sputum production. He has no shortness of breath or chest pain. Patient is a liver cirrhosis patient with history of a TIPS procedure. He has also had his history of bleeding varices. He denies having any melena or abdominal pain. He previously was on the transplant list. However because he got sick he is to go now in approximately 9 months for another evaluation. Allergies: None Medications: See MALAIKA BLEVINS Const: Negative except for what stated in the HPI Eyes : No pain discharge or redness or change in visual acuity ENT: No pain, sore throat, congestion, congestion, dysphagia or discharge Respiratory: Negative except for was in the HPI Cardiovascular: No chest pain, palpitation, PND, or edema GI : Negative except for what stated in the HPI Genitourinary: No dysuria, hematuria, flank pain , discharge or CVA tenderness Musculoskeletal: Trace edema of the right lower extremity Skin: No rash, bruising or hives Neuro: No headache, dizziness, syncope, seizure, focal weakness Endocrine: No polyuria, polydipsia, temperature intolerance Psych: No hallucination, depression, anxiety or suicidal ideation PMH/Family/Social Past Medical History Cirrhosis, hepatitis C, 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, tuberculosis as a child Past Surgical History Right tumor removal, cholecystectomy, resection of small bowel, nasal surgery Family History Significant Family History: other (Mom: Hepatitis C) Social History Alcohol Use: none Smoking Status: Never smoker Drug Use: none Exam/Review of Systems Vital Signs Vitals Vital Signs Date Time Temp Pulse Resp B/P Pulse Ox O2 Delivery O2 Flow Rate FiO2 07/27/16 21:10 77 07/27/16 20:15 16 109/63 95 Room Air 07/27/16 18:26 4 07/27/16 15:19 100.6 Exam Exam General: Patient is an obese male in no acute distress The patient is alert oriented -3 HEENT: Atraumatic, normocephalic. The pupils are equal, round and reactive. Extraocular motor are intact, no scleral icterus Neck: Supple with full range of motion. No rigidity or meningismus Chest: Nontender Lungs: Coarse breath sounds throughout lung marrero, no wheezing Heart: Normal S1-S2, Regular rhythm and rate. No murmur, S3, or S4 Abdomen: Soft, but distended no fluid wave, positive bowel sounds Extremities: Normal to inspection, no edema no cyanosis Neurologic: Normal mental status, speech normal, cranial nerves II through XII are intact, motor and sensory are intact, no focal weakness Additional Comments CT of abdomen and Pelvis 1. Diffuse multilobar alveolar infiltrates compatible with pneumonia. Recommend follow-up until resolution. 2. 9 mm right upper lobe spiculated nodule suspicious for neoplasm or metastasis. Consider PET CT. 3. No evidence for pathologic lymphadenopathy. 4. Moderate cardiomegaly and atherosclerotic vascular disease 5. Hepatic cirrhosis and mild splenomegaly with TIPS present. Consultation Date/Type/Reason Admit Date/Time July 27, 2016 at 19:18 Social History Alcohol Use: none Smoking Status: Never smoker Drug Use: none Exam/Review of Systems Vital Signs Vitals Vital Signs Date Time Temp Pulse Resp B/P Pulse Ox O2 Delivery O2 Flow Rate FiO2 07/28/16 12:12 98.0 78 18 141/66 95 07/28/16 07:45 Nasal Cannula 4.0 Intake and Output 07/27/16 07/27/16 07/28/16 15:00 23:00 07:00 Intake Total 120 ml Output Total 750 ml Balance -630 ml Results Result Diagram: 07/28/16 0719 07/28/16 0719 Results 24 hrs Laboratory Tests Test 07/27/16 16:30 07/27/16 19:10 07/27/16 21:45 07/27/16 23:39 White Blood Count 6.3 # Red Blood Count 3.72 L Hemoglobin 11.3 L Hematocrit 33.1 L Mean Corpuscular Volume 89.0 Mean Corpuscular Hemoglobin 30.4 Mean Corpuscular Hemoglobin Concent 34.1 Red Cell Distribution Width 16.4 H Platelet Count 43 #L Mean Platelet Volume 11.1 H Neutrophils % 75.0 Band Neutrophils % 15.0 H Lymphocytes % 4.0 L Monocytes % 6.0 Eosinophils % Neutrophils # 4.7 Lymphocytes # 0.3 L Monocytes # 0.4 Eosinophils # Platelet Estimate PLT APPEAR DECREASED Anisocytosis OCCASIONAL Microcytosis OCCASIONAL Prothrombin Time 19.7 H Prothrombin Time Ratio 1.5 INR International Normalized Ratio 1.66 Activated Partial Thromboplast Time 38.1 H D-Dimer 1456.39 H D-Dimer Comment Sodium Level 134 L Potassium Level 4.1 Chloride Level 100 Carbon Dioxide Level 21 Anion Gap 17 H Blood Urea Nitrogen 36 H Creatinine 1.99 H Glucose Level 247 H Calcium Level 8.0 L Total Bilirubin 2.4 H Direct Bilirubin 0.00 Indirect Bilirubin 2.4 H Aspartate Amino Transf (AST/SGOT) 43 Alanine Aminotransferase (ALT/SGPT) 41 Alkaline Phosphatase 48 Troponin I 0.026 Total Protein 6.9 Albumin 3.4 Globulin 3.50 H Albumin/Globulin Ratio 0.97 Lactic Acid Level 1.7 1.7 2.7 H Test 07/28/16 00:38 07/28/16 07:19 Hemoglobin 10.3 L 10.4 L Hematocrit 31.7 L 31.7 L Sodium Level 136 Potassium Level 4.7 Chloride Level 108 Carbon Dioxide Level 21 Anion Gap 12 Blood Urea Nitrogen 30 H Creatinine 1.41 H Glucose Level 159 Hemoglobin A1c 6.3 H Calcium Level 7.4 L Total Bilirubin 1.5 H Direct Bilirubin 0.00 Indirect Bilirubin 1.5 H Aspartate Amino Transf (AST/SGOT) 35 Alanine Aminotransferase (ALT/SGPT) 43 Alkaline Phosphatase 51 Total Protein 6.5 Albumin 3.4 Globulin 3.10 Albumin/Globulin Ratio 1.09 Medications Medications Current Medications Ondansetron HCl (Zofran Inj) 4 mg Q6H PRN IV NAUSEA AND/OR VOMITING; Start 07/27 at 22:00 Morphine Sulfate (morphine) 2 mg Q4H IV Last administered on 07/28/16 08:43; Admin Dose 2 MG; Start 07/27/16 at 22:00 Pantoprazole 40 mg 40 mg BID@06,18 IV Last administered on 07/28/16 05:39; Admin Dose 40 MG; Start 07/28/16 at 06:00 Cefepime HCl 50 ml @ 100 mls/hr Q12 IVPB Last administered on 07/28/16 08:42; Admin Dose 100 MLS/HR; Start 07/28/16 at 09:00 Levofloxacin/ Dextrose 150 ml @ 100 mls/hr Q24H IVPB Last administered on 01:27; Admin Dose 100 MLS/HR; Start 07/27/16 at 23:00 Octreotide Acetate/Sodium Chloride (Sandostatin/NS) 100 ml @ 5 mls/hr Q20H IV Last administered on 07/28/16 01:26; Admin Dose 5 MLS/HR; Start 07/28/16 at 02:00 MAKI GILBERT MD July 28, 2016 13:05
[2016-07-28] MEDS ORDERED: GLUCOSE GEL 15 GRAM TUBE PO PRN ×2 (14:00)
[2016-07-28] MEDS ORDERED: DEXTROSE 50% 50 ML SYRINGE IV PRN ×2 (14:00)
[2016-07-28] MEDS ORDERED: GLUCAGON 1 MG INJ IM PRN (14:00)
[2016-07-28] MEDS ORDERED: GLUCOSE GEL 15 GRAM TUBE BUCCAL PRN (14:00)
--- NOTE | 2016-07-28 14:20 | RADRPT ---
PROCEDURE: Nuclear medicine VQ scan CLINICAL INDICATION: Shortness of breath, hemoptysis. TECHNIQUE: 50.0 mCi of technetium-99m aerosolized DTPA was utilized for the ventilation study. 5. 0 mCi of technetium 99m MAA was utilized for the perfusion study. Planar imaging which performed in 8 planes. Images were reviewed on the high resolution PACS workstation. COMPARISON: CT chest from 07/27/2016. FINDINGS: There is a slightly heterogeneous distribution of the DTPA and the airway is on the ventilatory stud y with some hang up centrally and in the upper lung marrero. This suggests a degree of obstructive a irways disease.. No matched or mismatched defects are identified. There is no evidence for pulmon samuel embolism. IMPRESSION: 1. Low probability VQ scan. RPTAT:AACC Physician Steven Date Time Electronically viewed and signed by Physician Steven on 07/28/2016 14:19 OSEI/
--- NOTE | 2016-07-28 16:30 | PN ---
DATE: 07/27/2016 SUBJECTIVE DATA: Denies any abdominal pain. Complains of blood with sputum. OBJECTIVE DATA: VITAL SIGNS: Temperature 98.0, pulse is 70, respiratory rate 18, blood pressure 141/66, oxygen saturation 95% on room air. GENERAL: This is a morbidly obese male patient lying in bed in no apparent distress. HEENT: Head normocephalic and atraumatic. Eyes: Anicteric sclerae. Conjunctivae clear. ENT: Nasal septum is midline. Oral mucosa is dry. NECK: Supple. No JVD noticed. RESPIRATORY: Bilaterally diminished breath sounds. No use of accessory muscles of respiration. CARDIAC: Regular rate and rhythm. S1 and S2 heard. ABDOMEN: Obese. Nontender. Bowel sounds hypoactive in all 4 quadrants. GENITOURINARY: Deferred. EXTREMITIES: No cyanosis, no clubbing. Bilateral lower extremity discoloration probably from venous stasis with bilateral lower extremity 2+ pitting edema. Peripheral pulses palpable. NEUROLOGIC: The patient is awake, alert and oriented. Cranial nerves are grossly intact. LABORATORY AND DIAGNOSTIC DATA: WBC 6.3, hemoglobin 11.3, hematocrit 33.1, platelet count 43. Sodium 136, potassium 4.7, chloride 108, carbon dioxide 29, anion gap 12, BUN 30, creatinine 1.4, glucose 159, calcium 7.4. Hemoglobin A1c 6.3. ASSESSMENT AND PLAN: 1. Community-acquired pneumonia. The patient currently on antibiotics. No evidence of any septic shock. 2. Hematemesis/hemoptysis. The patient has known history of hepatitis and liver cirrhosis. The patient is status post TIPS procedure. The patient will be maintained on proton pump inhibitors. Blood transfusion will be given as needed. The patient is being followed by gastroenterology. 3. Acute on chronic kidney disease. The patient has baseline chronic kidney disease stage III. The patient came in with worsening creatinine. The patient' s creatinine has improved. Nephrotoxic drugs will be used with caution. 4. Type 2 diabetes mellitus. Hemoglobin A1c is 6.3. The patient was started on sliding scale insulin, which will be continued. 5. Thrombocytopenia. Most probably secondary to underlying liver cirrhosis. We will monitor. We avoid any antiplatelet medications. 6. Normocytic normochromic anemia. Most probably anemia of acute blood loss. Stool for OB pending at this time. Continue proton pump inhibitors. Gastroenterology following. 7. 9 mm spiculated mass in the right upper lobe. The patient is being followed by pulmonology. Continue to monitor. 8. Fluid, electrolytes and nutrition. Carbohydrate controlled diet. 9. Deep venous thrombosis prophylaxis. Chemical DVT prophylaxis is contraindicated because of thrombocytopenia. 10. Gastrointestinal prophylaxis. Proton pump inhibitors. PLAN: Continue current management. Await further recommendations from consultants. Case discussed with Dr. Lloyd. KATE LLOYD MD, AM/ASHKAN Conf#: [id number] DID#: [id number] MTDD
[2016-07-28] MEDS: INSULIN ASPART [NOVOLOG] 3 ML PEN SC SCH ×2 (17:39→20:28)
[2016-07-28 18:29] LABS: HEMATOCRIT 31.2 % (42.0-52.0); HEMOGLOBIN 10.4 g/dl (14.0-18.0)
[2016-07-29] VITALS (11 sets, daily range): BP systolic 136–160; BP diastolic 64–88; PULSE 68–88; RESP 18–20
[2016-07-29] MEDS: ACCU-CHEK XX SCH (02:00)
--- NOTE | 2016-07-29 02:54 | RADRPT ---
PROCEDURE: XR Chest. CLINICAL INDICATION: Shortness of breath. TECHNIQUE: Single frontal chest x-ray. COMPARISON: 11/11/2012 FINDINGS: The heart is enlarged.. There is mild pulmonary vascular congestion.. There is left basilar/retroca rdiac atelectasis versus infiltrate. There is no pleural effusion. There is no pneumothorax. The osseous structures are unremarkable. IMPRESSION: Cardiomegaly. Mild pulmonary vascular congestion. Left basilar atelectasis versus infiltrate. RPTAT: [facility]VK .Adan Villalobos MD, MD Date Time Electronically viewed and signed by .Adan Villalobos MD, on 07/29/2016 02:54 .K/
[2016-07-29] MEDS: OCTREOTIDE 1 MG in SOD CHLORIDE 0.9% 95 ML IV SCH ×2 (04:15→11:32)
[2016-07-29] MEDS: morphine 2 MG INJ IV SCH ×2 (04:15→06:44)
[2016-07-29] MEDS: PANTOPRAZOLE 40 MG INJ IV SCH ×2 (06:44→17:59)
--- NOTE | 2016-07-29 06:53 | CONS ---
DATE OF ADMISSION: 07/27/2016 DATE OF CONSULTATION: 07/28/2016 REASON FOR REFERRAL: Evaluation of pneumonia and hemoptysis. HISTORY OF PRESENT ILLNESS: Mr. Miller is a pleasant 50-year-old white male who came into the emergency room with a few hour history of coughing as well as low grade fever. According to the patient, he coughed up blood, which was dark in color, mixed with sputum. Patient denies any prior episodes and according to him, he was fine until yesterday morning when the symptoms started. The patient denies any abdominal pain, nausea or vomiting. Denies any high grade fever, or chills, any sore throat. Upon evaluation here in the ER, a CT scan of chest was done which is showing bilateral pneumonia. Patient started on appropriate antibiotic regimen according to him he is somewhat better but still coughed up a small amount of blood a short while ago. PAST MEDICAL HISTORY: 1. History of cirrhosis due to hepatitis C. The patient is status post treatment. 2. History of right renal cancer status post radiofrequency ablation 4 months ago. 3. History of being PPD positive, status post INH treatment. 4. Chronic pain. 5. Renal insufficiency. 6. Thrombocytopenia. 7. Anemia. 8. The patient is status post TIPS procedure several years ago. MEDICATIONS: Currently, the patient is on:other medications reviewed. 1. Cefepime 1 gram q.12 hours. 2. Levaquin 750 mg IV daily. 3.. Morphine on a p.r.n. basis. 4.. Protonix 40 mg a day. ALLERGIES: NONE. SOCIAL HISTORY: Never smoked. No history of alcohol or drug abuse. FAMILY HISTORY: The patient is . He has 1 child. His mother has hepatitis C. OCCUPATIONAL HISTORY: The patient is a dietitian currently on disability. REVIEW OF SYSTEMS: Denies any headache, seizures, visual changes, postnasal drip, dysphagia, odynophagia, chest pain, angina or wheezing. Complains of scant cough, scant hemoptysis. Denies any abdominal pain, nausea, vomiting, diarrhea. Complains of chronic lower extremity edema. Complains of mild chronic SOB. Denies any bleeding. PHYSICAL EXAMINATION: GENERAL: Young middle-aged male, appears obese, currently in no distress. VITAL SIGNS: Temperature is 97.9 degrees Fahrenheit, heart rate is 74 per minute, blood pressure is 132/88, respiratory rate 18 per minute, O2 sat 97% on 2 liter nasal cannula. HEENT: Supple neck, no JVD, no lymphadenopathy, midline trachea, no thyromegaly pharynx clear, no neck bruits. Patient has fair dentition. Pupils are mid size, reactive to light. Extraocular movements intact. LUNGS: Clear to auscultation. HEART: S1, S2 audible, no murmurs, regular rhythm. ABDOMEN: Protuberant multiple small well-healed scars are present. Umbilicus is inverted. Bowel sounds are audible. No organomegaly. No ascites. No bruit or thrill. EXTREMITIES: Chronic appearing 1+ lower extremity edema bilaterally. Pulses 1 + bilaterally, no clubbing. NEUROLOGIC: Cranial nerves are normal. There is no motor or sensory deficit. IMAGING: CT chest was reviewed without contrast from yesterday, which is showing bilateral pneumonia left lung. I could not appreciate the mentioned 9 mm right upper lobe density. LABORATORY DATA: From today, sodium 130, potassium 4.7, chloride 108, bicarbonate 31, glucose 159, BUN 30, creatinine 1.4. White count from yesterday 6.3, hemoglobin 11.3, platelet count of 43,000. ASSESSMENT AND PLAN: 1. Patient admitted with bilateral pneumonia, community-acquired. 2. s/p INH treatment 3. I could not appreciate the radiologist reporting 9 mm right upper lobe nodule. 4. History of recent renal cancer status post radiofrequency ablation. According to the patient, there was no evidence of any metastases. 5. Renal insufficiency. 6. Cirrhosis with TIPS procedure in the past. 7. Thrombocytopenia. RECOMMENDATIONS: Continue current treatment. We will obtain follow up chest x- ray in 48 hours. Dictated By: JOSSE MERAZ/ASHKAN Conf#: [id number] DID#: [id number] MTDD
[2016-07-29 07:23] LABS: ADD SCAN DIFF NO
[2016-07-29 07:33] LABS: ABNORMAL IP MESSAGE 1; HEMATOCRIT 32.2 % (42.0-52.0); HEMOGLOBIN 10.9 g/dl (14.0-18.0); MEAN CORPUSCULAR HGB CONC 33.9 g/dl (32.0-37.0); MEAN CORPUSCULAR VOLUME 88.7 fl (82.0-101.0); MEAN PLATELET VOLUME 11.2 fl (7.4-10.4); PLATELET COUNT 50 10^3/UL (140-415); RED BLOOD COUNT 3.63 10^6/ul (4.70-6.10); RED CELL DISTRIBUTION WIDTH 16.7 % (11.5-14.5); WHITE BLOOD COUNT 3.3 10^3/ul (4.8-10.8)
[2016-07-29] MEDS: INSULIN ASPART [NOVOLOG] 3 ML PEN SC SCH ×4 (08:00→21:00)
[2016-07-29 08:06] LABS: ALBUMIN 3.4 g/dl (3.3-4.9); BILIRUBIN,INDIRECT 2.1 mg/dl (0-1.1); BILIRUBIN,TOTAL 2.1 mg/dl (0.2-1.3); CREATININE 1.16 mg/dl (0.61-1.24); POTASSIUM 4.5 mmol/L (3.5-5.1); TOTAL PROTEIN 6.8 g/dl (6.1-8.1)
[2016-07-29 08:14] LABS: MAGNESIUM 1.7 mg/dl (1.7-2.5); PHOSPHORUS 2.9 mg/dl (2.5-4.9)
[2016-07-29 08:23] LABS: CHOL/HDL RATIO 3.8 RATIO
[2016-07-29] MEDS: CEFEPIME 1GM/50 ML (PMX) 50 ML IVPB SCH ×2 (09:38→21:28)
--- NOTE | 2016-07-29 10:16 | CONS ---
Date/Time of Note Date/Time of Note DATE: 07/29/16 TIME: 10:16 Assessment/Plan Assessment/Plan Additional Assessment/Plan Liver Cirrhosis Status post TIPS procedure Monitor ascites Paracentesis prn Fluid cytology with paracentesis 2gm Na Diet Recommend EGD Q 3 months for variceal surveillance Hematemsis/hemoptysis Collect stool OBx2 Monitor hemoglobin daily, transfuse 1 unit for hemoglobin less than 7.5, transfuse 2 units for hemoglobin less than 7.0 History of hepatitis C Hepatitis C RNA and genotype Monitor liver function tests Question of hepatic encephalopathy Lactulose 3 times daily for 2 days Monitor ammonia levels Further recommendations depend on clinical course Patient seen in collaboration with Dr. Gruber Consultation Date/Type/Reason Admit Date/Time July 27, 2016 at 19:18 Initial Consult Date 07/28/16 Type of Consultation: Gastroenterology 24 HR Interval Summary Free Text/Dictation Reports diffuse abdominal pain Denies nausea vomiting Abdominal ultrasound ordered to evaluate Exam/Review of Systems Vital Signs Vitals Vital Signs Date Time Temp Pulse Resp B/P Pulse Ox O2 Delivery O2 Flow Rate FiO2 07/29/16 08:37 72 07/29/16 07:37 98.0 18 140/68 94 07/29/16 00:59 Nasal Cannula 4.0 Intake and Output 07/28/16 07/28/16 07/29/16 14:59 22:59 06:59 Intake Total 240 ml 545 ml Output Total 750 ml Balance -510 ml 545 ml Exam Constitutional: alert, oriented, well developed, slightly confused Psych: nl mood/affect Head: normocephalic Eyes: EOMI, nl conjunctiva, nl lids ENMT: nl external ears & nose, nl lips & teeth, nl nasal mucosa & septum Respiratory: clear to auscultation, normal air movement Cardiovascular: regular rate and rhythm Gastrointestinal: soft, diffuse tenderness Musculoskeletal: nl extremities to inspection Neurological: POULTRY PROCESSOR II-XII intact Results Result Diagram: 07/29/16 0655 07/29/16 0655 Results 24 hrs Laboratory Tests Test 07/28/16 12:32 07/28/16 17:31 07/28/16 18:20 07/28/16 20:28 Hemoglobin 10.3 L 10.4 L Hematocrit 31.6 L 31.2 L Bedside Glucose 224 H 116 Test 07/29/16 06:55 07/29/16 08:06 White Blood Count 3.3 #L Red Blood Count 3.63 L Hemoglobin 10.9 L Hematocrit 32.2 L Mean Corpuscular Volume 88.7 Mean Corpuscular Hemoglobin 30.0 Mean Corpuscular Hemoglobin Concent 33.9 Red Cell Distribution Width 16.7 H Platelet Count 50 L Mean Platelet Volume 11.2 H Sodium Level 137 Potassium Level 4.5 Chloride Level 108 Carbon Dioxide Level 24 Anion Gap 10 Blood Urea Nitrogen 22 H Creatinine 1.16 Glucose Level 167 Calcium Level 8.0 L Phosphorus Level 2.9 Magnesium Level 1.7 Total Bilirubin 2.1 H Direct Bilirubin 0.00 Indirect Bilirubin 2.1 H Aspartate Amino Transf (AST/SGOT) 29 Alanine Aminotransferase (ALT/SGPT) 38 Alkaline Phosphatase 49 Ammonia 52 H Total Protein 6.8 Albumin 3.4 Globulin 3.40 H Albumin/Globulin Ratio 1.00 Triglycerides Level 92 Cholesterol Level 93 L LDL Cholesterol, Calculated 51 HDL Cholesterol 24 L Cholesterol/HDL Ratio 3.8 Bedside Glucose 142 Medications Medications Current Medications Ondansetron HCl (Zofran Inj) 4 mg Q6H PRN IV NAUSEA AND/OR VOMITING; Start 07/27 at 22:00 Morphine Sulfate (morphine) 2 mg Q4H IV Last administered on 07/29/16 06:44; Admin Dose 2 MG; Start 07/27/16 at 22:00 Pantoprazole 40 mg 40 mg BID@06,18 IV Last administered on 07/29/16 06:44; Admin Dose 40 MG; Start 07/28/16 at 06:00 Cefepime HCl 50 ml @ 100 mls/hr Q12 IVPB Last administered on 07/29/16 09:38; Admin Dose 100 MLS/HR; Start 07/28/16 at 09:00 Levofloxacin/ Dextrose 150 ml @ 100 mls/hr Q24H IVPB Last administered on 23:43; Admin Dose 100 MLS/HR; Start 07/27/16 at 23:00 Octreotide Acetate/Sodium Chloride (Sandostatin/NS) 100 ml @ 5 mls/hr Q20H IV Last administered on 07/29/16 04:15; Admin Dose 5 MLS/HR; Start 07/28/16 at 02:00 Diagnostic Test (Pha) (Accu-Chek) 1 ea 02 XX ; Start 07/29/16 at 02:00 Miscellaneous Information 1 ea NOTE XX ; Start 07/28/16 at 14:00 Glucose (Glutose) 15 gm Q15M PRN PO DECREASED GLUCOSE; Start 07/28/16 at 14:00 Glucose (Glutose) 22.5 gm Q15M PRN PO DECREASED GLUCOSE; Start 07/28/16 at 14:00 Dextrose (D50w Syringe) 25 ml Q15M PRN IV DECREASED GLUCOSE; Start 07/28/16 at 14:00 Dextrose (D50w Syringe) 50 ml Q15M PRN IV DECREASED GLUCOSE; Start 07/28/16 at 14:00 Glucagon (Glucagen) 1 mg Q15M PRN IM DECREASED GLUCOSE; Start 07/28/16 at 14:00 Glucose (Glutose) 15 gm Q15M PRN BUCCAL DECREASED GLUCOSE; Start 07/28/16 at 14: 00 RADHA PEDRO July 29, 2016 10:16 Glucagon (Glucagen) 1 mg Q15M PRN IM DECREASED GLUCOSE; Start 07/28/16 at 14:00 Glucose (Glutose) 15 gm Q15M PRN BUCCAL DECREASED GLUCOSE; Start 07/28/16 at 14: 00 RADHA PEDRO July 29, 2016 10:16
--- NOTE | 2016-07-29 10:43 | CONS ---
Date/Time of Note Date/Time of Note DATE: 07/29/16 TIME: 10:40 Assessment/Plan Assessment/Plan Additional Assessment/Plan Assessment recommendations; next 1. Patient admitted with pneumonia with interval improvement 2. Hemoptysis likely from underlying pneumonia as well. 3. History of renal cancer status post radiofrequency ablation 4 months ago, according to patient no evidence of any metastasis as per his oncologist. 4. Cirrhosis of liver, status post TIPS procedure. 5. Chronic pain. 6. History of anemia and thrombocytopenia. Continue current treatment. Obtain follow-up chest x-ray tomorrow. Resume patient's methadone he takes at 30 mg 3 times daily I would start at 20 mg 3 times daily as that is a dose available in the hospital. Consultation Date/Type/Reason Admit Date/Time July 27, 2016 at 19:18 Initial Consult Date 07/28/16 Type of Consultation: pulmonary 24 HR Interval Summary Free Text/Dictation Patient is complaining of generalized fatigue and chronic pain. He is requesting that he be put back on his methadone which he takes on an outpatient basis on a regular basis for the last several years. Patient complains of very minimal shortness of breath, denies any fever chills or chest pain. Patient had a very minimal episode of hemoptysis early this morning. According to him that is improving. General exam; middle-aged male, appears quite overweight, currently in no distress, awake and alert. Exam/Review of Systems Vital Signs Vitals Vital Signs Date Time Temp Pulse Resp B/P Pulse Ox O2 Delivery O2 Flow Rate FiO2 07/29/16 08:37 72 07/29/16 07:37 98.0 18 140/68 94 07/29/16 00:59 Nasal Cannula 4.0 Intake and Output 07/28/16 07/28/16 07/29/16 15:00 23:00 07:00 Intake Total 240 ml 545 ml Output Total 750 ml Balance -510 ml 545 ml Exam HEENT exam is; supple no JVD. No lymphadenopathy. Midline trachea. No thyromegaly. Pharynx is clear. Patient has fair dentition. Neck Chest examination; diminished but clear vessel. S1-S2 audible, no murmurs. Regular rhythm. Abdomen examination; soft, protuberant. Nontender. Bowel sounds audible. Extremity exam; 2+ chronic appearing pitting edema bilaterally in lower extremities. Pulses 1+ bilaterally. Next JOURNALIST examination; no focal deficit. Results Result Diagram: 07/29/16 0655 07/29/16 0655 Results 24 hrs Laboratory Tests Test 07/28/16 12:32 07/28/16 17:31 07/28/16 18:20 07/28/16 20:28 Hemoglobin 10.3 L 10.4 L Hematocrit 31.6 L 31.2 L Bedside Glucose 224 H 116 Test 07/29/16 06:55 07/29/16 08:06 White Blood Count 3.3 #L Red Blood Count 3.63 L Hemoglobin 10.9 L Hematocrit 32.2 L Mean Corpuscular Volume 88.7 Mean Corpuscular Hemoglobin 30.0 Mean Corpuscular Hemoglobin Concent 33.9 Red Cell Distribution Width 16.7 H Platelet Count 50 L Mean Platelet Volume 11.2 H Sodium Level 137 Potassium Level 4.5 Chloride Level 108 Carbon Dioxide Level 24 Anion Gap 10 Blood Urea Nitrogen 22 H Creatinine 1.16 Glucose Level 167 Calcium Level 8.0 L Phosphorus Level 2.9 Magnesium Level 1.7 Total Bilirubin 2.1 H Direct Bilirubin 0.00 Indirect Bilirubin 2.1 H Aspartate Amino Transf (AST/SGOT) 29 Alanine Aminotransferase (ALT/SGPT) 38 Alkaline Phosphatase 49 Ammonia 52 H Total Protein 6.8 Albumin 3.4 Globulin 3.40 H Albumin/Globulin Ratio 1.00 Triglycerides Level 92 Cholesterol Level 93 L LDL Cholesterol, Calculated 51 HDL Cholesterol 24 L Cholesterol/HDL Ratio 3.8 Bedside Glucose 142 Medications Medications Current Medications Ondansetron HCl (Zofran Inj) 4 mg Q6H PRN IV NAUSEA AND/OR VOMITING; Start 07/27 at 22:00 Morphine Sulfate (morphine) 2 mg Q4H IV Last administered on 07/29/16 06:44; Admin Dose 2 MG; Start 07/27/16 at 22:00 Pantoprazole 40 mg 40 mg BID@06,18 IV Last administered on 07/29/16 06:44; Admin Dose 40 MG; Start 07/28/16 at 06:00 Cefepime HCl 50 ml @ 100 mls/hr Q12 IVPB Last administered on 07/29/16 09:38; Admin Dose 100 MLS/HR; Start 07/28/16 at 09:00 Levofloxacin/ Dextrose 150 ml @ 100 mls/hr Q24H IVPB Last administered on 23:43; Admin Dose 100 MLS/HR; Start 07/27/16 at 23:00 Octreotide Acetate/Sodium Chloride (Sandostatin/NS) 100 ml @ 5 mls/hr Q20H IV Last administered on 07/29/16 04:15; Admin Dose 5 MLS/HR; Start 07/28/16 at 02:00 Diagnostic Test (Pha) (Accu-Chek) 1 ea 02 XX ; Start 07/29/16 at 02:00 Miscellaneous Information 1 ea NOTE XX ; Start 07/28/16 at 14:00 Glucose (Glutose) 15 gm Q15M PRN PO DECREASED GLUCOSE; Start 07/28/16 at 14:00 Glucose (Glutose) 22.5 gm Q15M PRN PO DECREASED GLUCOSE; Start 07/28/16 at 14:00 Dextrose (D50w Syringe) 25 ml Q15M PRN IV DECREASED GLUCOSE; Start 07/28/16 at 14:00 Dextrose (D50w Syringe) 50 ml Q15M PRN IV DECREASED GLUCOSE; Start 07/28/16 at 14:00 Glucagon (Glucagen) 1 mg Q15M PRN IM DECREASED GLUCOSE; Start 07/28/16 at 14:00 Glucose (Glutose) 15 gm Q15M PRN BUCCAL DECREASED GLUCOSE; Start 07/28/16 at 14: 00 Lactulose (Enulose) 10 gm Q8 PO ; Start 07/29/16 at 14:00; Stop 07/31/16 at 13:59 JOSSE ROSARIO July 29, 2016 10:43
[2016-07-29 11:30] LABS: EOSINOPHILS # 0.1 10^3/ul (0.0-0.5); LYMPHOCYTES # 0.4 10^3/ul (0.8-2.9); MONOCYTE # 0.1 10^3/ul (0.3-0.9); NEUTROPHIL # 2.7 10^3/ul (1.6-7.5); PLATELET ESTIMATE PLT APPEAR DECREASED
[2016-07-29] MEDS ORDERED: METHADONE 10 MG TAB PO SCH ×3 (12:45→14:00)
[2016-07-29] MEDS: LACTULOSE 30ML CUP PO SCH ×3 (12:48→21:28)
[2016-07-29] MEDS ORDERED: LACTULOSE 30ML CUP PO SCH (14:00)
--- NOTE | 2016-07-29 14:24 | PN ---
Date/Time of Note Date/Time of Note DATE: 07/29/16 TIME: 14:23 Assessment/Plan VTE Prophylaxis VTE Prophylaxis Intervention: contraindicated Lines/Catheters IV [facility] Type [facility] Peripheral IV Urinary Cath still in place: No Assessment/Plan Chief Complaint/Hosp Course 1. Community-acquired pneumonia. The patient currently on antibiotics. No evidence of any septic shock. 2. Hematemesis/hemoptysis. The patient has known history of hepatitis and liver cirrhosis. The patient is status post TIPS procedure. The patient will be maintained on proton pump inhibitors. Blood transfusion will be given as needed. The patient is being followed by gastroenterology. 3. Acute on chronic kidney disease. The patient has baseline chronic kidney disease stage III. The patient came in with worsening creatinine. The patient' s creatinine has improved. Nephrotoxic drugs will be used with caution. 4. Type 2 diabetes mellitus. Hemoglobin A1c is 6.3. The patient is on sliding scale insulin. 5. Thrombocytopenia. Most probably secondary to underlying liver cirrhosis. We will monitor. We avoid any antiplatelet medications. 6. Normocytic normochromic anemia. Most probably anemia of acute blood loss. Stool for OB pending at this time. Continue proton pump inhibitors. Gastroenterology following. 7. 9 mm spiculated mass in the right upper lobe. The patient is being followed by pulmonology. Continue to monitor. 8. Chronic pain. The patient takes methadone at home. Will resume methadone. Will involve pain management team. 9. Fluid, electrolytes and nutrition. Carbohydrate controlled diet. 10. Deep venous thrombosis prophylaxis. Chemical DVT prophylaxis is contraindicated because of thrombocytopenia. 11. Gastrointestinal prophylaxis. Proton pump inhibitors. PLAN: Continue current management. Await further recommendations from consultants. Case discussed with Dr. Vidales. Problems: Subjective 24 Hr Interval Summary Free Text/Dictation Minimal blood with cough. Exam/Review of Systems Vital Signs Vitals Vital Signs Date Time Temp Pulse Resp B/P Pulse Ox O2 Delivery O2 Flow Rate FiO2 07/29/16 12:47 71 07/29/16 08:00 Nasal Cannula 2.0 07/29/16 07:37 98.0 18 140/68 94 Intake and Output 07/28/16 07/28/16 07/29/16 14:59 22:59 06:59 Intake Total 240 ml 545 ml Output Total 750 ml Balance -510 ml 545 ml Exam GENERAL: This is a morbidly obese male patient lying in bed in no apparent distress. HEENT: Head normocephalic and atraumatic. Eyes: Anicteric sclerae. Conjunctivae clear. ENT: Nasal septum is midline. Oral mucosa is dry. NECK: Supple. No JVD noticed. RESPIRATORY: Bilaterally diminished breath sounds. No use of accessory muscles of respiration. CARDIAC: Regular rate and rhythm. S1 and S2 heard. ABDOMEN: Obese. Nontender. Bowel sounds hypoactive in all 4 quadrants. GENITOURINARY: Deferred. EXTREMITIES: No cyanosis, no clubbing. Bilateral lower extremity discoloration probably from venous stasis with bilateral lower extremity 2+ pitting edema. Peripheral pulses palpable. NEUROLOGIC: The patient is awake, alert and oriented. Cranial nerves are grossly intact. Results Result Diagram: 07/29/16 0655 07/29/16 0655 Results 24 hrs Laboratory Tests Test 07/28/16 17:31 07/28/16 18:20 07/28/16 20:28 07/29/16 06:55 Bedside Glucose 224 H 116 Hemoglobin 10.4 L 10.9 L Hematocrit 31.2 L 32.2 L White Blood Count 3.3 #L Red Blood Count 3.63 L Mean Corpuscular Volume 88.7 Mean Corpuscular Hemoglobin 30.0 Mean Corpuscular Hemoglobin Concent 33.9 Red Cell Distribution Width 16.7 H Platelet Count 50 L Mean Platelet Volume 11.2 H Neutrophils % 81.0 H Lymphocytes % 12.0 L Monocytes % 4.0 Eosinophils % 2.0 Basophils % 1.0 Neutrophils # 2.7 Lymphocytes # 0.4 L Monocytes # 0.1 L Eosinophils # 0.1 Basophils # 0.0 Platelet Estimate PLT APPEAR DECREASED Sodium Level 137 Potassium Level 4.5 Chloride Level 108 Carbon Dioxide Level 24 Anion Gap 10 Blood Urea Nitrogen 22 H Creatinine 1.16 Glucose Level 167 Calcium Level 8.0 L Phosphorus Level 2.9 Magnesium Level 1.7 Total Bilirubin 2.1 H Direct Bilirubin 0.00 Indirect Bilirubin 2.1 H Aspartate Amino Transf (AST/SGOT) 29 Alanine Aminotransferase (ALT/SGPT) 38 Alkaline Phosphatase 49 Ammonia 52 H Total Protein 6.8 Albumin 3.4 Globulin 3.40 H Albumin/Globulin Ratio 1.00 Triglycerides Level 92 Cholesterol Level 93 L LDL Cholesterol, Calculated 51 HDL Cholesterol 24 L Cholesterol/HDL Ratio 3.8 Test 07/29/16 08:06 07/29/16 11:43 Bedside Glucose 142 160 Medications Medications Current Medications Ondansetron HCl (Zofran Inj) 4 mg Q6H PRN IV NAUSEA AND/OR VOMITING; Start 07/27 at 22:00 Pantoprazole 40 mg 40 mg BID@06,18 IV Last administered on 07/29/16 06:44; Admin Dose 40 MG; Start 07/28/16 at 06:00 Cefepime HCl 50 ml @ 100 mls/hr Q12 IVPB Last administered on 07/29/16 09:38; Admin Dose 100 MLS/HR; Start 07/28/16 at 09:00 Levofloxacin/ Dextrose 150 ml @ 100 mls/hr Q24H IVPB Last administered on 23:43; Admin Dose 100 MLS/HR; Start 07/27/16 at 23:00 Octreotide Acetate/Sodium Chloride (Sandostatin/NS) 100 ml @ 5 mls/hr Q20H IV Last administered on 07/29/16 11:32; Admin Dose 5 MLS/HR; Start 07/28/16 at 02:00 Diagnostic Test (Pha) (Accu-Chek) 1 ea 02 XX ; Start 07/29/16 at 02:00 Miscellaneous Information 1 ea NOTE XX ; Start 07/28/16 at 14:00 Glucose (Glutose) 15 gm Q15M PRN PO DECREASED GLUCOSE; Start 07/28/16 at 14:00 Glucose (Glutose) 22.5 gm Q15M PRN PO DECREASED GLUCOSE; Start 07/28/16 at 14:00 Dextrose (D50w Syringe) 25 ml Q15M PRN IV DECREASED GLUCOSE; Start 07/28/16 at 14:00 Dextrose (D50w Syringe) 50 ml Q15M PRN IV DECREASED GLUCOSE; Start 07/28/16 at 14:00 Glucagon (Glucagen) 1 mg Q15M PRN IM DECREASED GLUCOSE; Start 07/28/16 at 14:00 Glucose (Glutose) 15 gm Q15M PRN BUCCAL DECREASED GLUCOSE; Start 07/28/16 at 14: 00 Methadone HCl (Methadone) 20 mg Q8 PO Last administered on 07/29/16 12:48; Admin Dose 20 MG; Start 07/29/16 at 12:45 Lactulose (Enulose) 10 gm Q8 PO Last administered on 07/29/16t 12:48; Admin Dose 10 GM; Start 07/29/16 at 12:45; Stop 07/31/16 at 13:59 KATE CARCAMO NP July 29, 2016 14:24
[2016-07-29] MEDS ORDERED: morphine 2 MG INJ IV PRN (17:30)
--- NOTE | 2016-07-29 18:05 | RADRPT ---
PROCEDURE: Complete abdominal ultrasound. CLINICAL INDICATION: Abdominal pain TECHNIQUE: Mcclellan scale and color doppler ultrasound images of the abdomen. COMPARISON: CT abdomen pelvis 07/27/2016 FINDINGS: Pancreas: Visualized portions appear of normal echogenicity, no focal lesions. Liver: Morphology: Mildly enlarged measuring 17.8 cm. Subtle nodularity of the hepatic contours are obser osbaldo. Echogenicity: Mild coarsening of the hepatic echotexture. Focal lesions: None. Main portal vein: Patent with hepatopetal flow. Full analysis of the patient's TIPS shunt was not pe rformed. Biliary System: Status post cholecystectomy. No intrahepatic biliary dilatation. Common bile duct diameter: 5.3 mm Kidneys: Right length: 10.8 cm. Right renal cortical thickness is preserved. Left length: 12.7 cm. Left renal cortical thickness is preserved. Normal echogenicity. No hydronephrosis. No renal calculi. No focal renal lesions. Spleen: Enlarged measuring at least 22.5 cm. No free fluid identified. Normal caliber of the partially visualized aorta. IMPRESSION: Nodular liver contour with coarsening of the hepatic echotexture suggestive of sonographic changes o f cirrhosis. Normal caliber intrahepatic and extrahepatic biliary system. Status post cholecystectomy. Splenomegaly as seen on the previous examination. RPTAT: AADD .Helio Dias MD, MD Date Time Electronically viewed and signed by .Helio Dias MD, on 07/29/2016 18:05 .B/
[2016-07-29] MEDS: METHADONE 10 MG TAB PO SCH (21:29)
[2016-07-29] MEDS: morphine LIQ (20 MG/ML PO SYG) PO PRN (22:29)
[2016-07-29] MEDS: LEVOFLOXACIN 750MG/D5W (PMX) 150 ML IVPB SCH (22:29)
[2016-07-30] VITALS (9 sets, daily range): BP systolic 129–158; BP diastolic 63–89; PULSE 70–78; RESP 18–20
[2016-07-30] MEDS: ACCU-CHEK XX SCH (01:52)
[2016-07-30] MEDS: morphine LIQ (20 MG/ML PO SYG) PO PRN ×4 (03:58→21:18)
[2016-07-30] MEDS: LACTULOSE 30ML CUP PO SCH ×3 (05:02→21:17)
[2016-07-30] MEDS: PANTOPRAZOLE 40 MG INJ IV SCH ×2 (05:02→16:58)
[2016-07-30] MEDS: METHADONE 10 MG TAB PO SCH ×3 (05:03→21:17)
[2016-07-30 07:28] LABS: ADD SCAN DIFF NO
[2016-07-30 07:44] LABS: ABNORMAL IP MESSAGE 1; HEMATOCRIT 34.3 % (42.0-52.0); HEMOGLOBIN 11.6 g/dl (14.0-18.0); MEAN CORPUSCULAR HEMOGLOBIN 30.4 pg (29.0-33.0); MEAN CORPUSCULAR HGB CONC 33.8 g/dl (32.0-37.0); MEAN CORPUSCULAR VOLUME 89.8 fl (82.0-101.0); MEAN PLATELET VOLUME 11.1 fl (7.4-10.4); RED BLOOD COUNT 3.82 10^6/ul (4.70-6.10); RED CELL DISTRIBUTION WIDTH 16.6 % (11.5-14.5); WHITE BLOOD COUNT 4.1 10^3/ul (4.8-10.8)
[2016-07-30 07:56] LABS: POTASSIUM 4.5 mmol/L (3.5-5.1)
[2016-07-30 07:57] LABS: PLATELET COUNT 68 10^3/UL (140-415)
[2016-07-30 07:58] LABS: CREATININE 1.08 mg/dl (0.61-1.24)
[2016-07-30 07:59] LABS: MAGNESIUM 1.7 mg/dl (1.7-2.5); PHOSPHORUS 2.9 mg/dl (2.5-4.9)
[2016-07-30] MEDS: INSULIN ASPART [NOVOLOG] 3 ML PEN SC SCH ×4 (08:00→21:00)
[2016-07-30] MEDS: CEFEPIME 1GM/50 ML (PMX) 50 ML IVPB SCH ×2 (09:00→17:00)
[2016-07-30 10:38] LABS: LYMPHOCYTES # 0.6 10^3/ul (0.8-2.9); MONOCYTE # 0.3 10^3/ul (0.3-0.9)
[2016-07-30 10:39] LABS: PLATELET ESTIMATE PLT APPEAR DECREASED
--- NOTE | 2016-07-30 11:36 | CONS ---
Date/Time of Note Date/Time of Note DATE: 07/30/16 TIME: 11:30 Consult Date/Type/Reason Admit Date/Time July 27, 2016 at 19:18 Initial Consult Date 07/28/16 Type of Consultation: pulmonary Subjective GENERAL: Well-nourished well-developed gentleman comfortable at rest VITAL SIGNS: per chart NECK: Supple. No JVD or lymphadenopathy. CARDIAC EXAM: S1, S2. No added sounds or murmurs. CHEST: clear bilaterally, No added sounds, rales or wheezes ABDOMEN: Soft, nontender. No guarding or rebound. EXTREMITIES: No cyanosis, clubbing or edema. NEUROLOGIC: Generalized weakness. No focal deficits. Objective Vital Signs Date Time Temp Pulse Resp B/P Pulse Ox O2 Delivery O2 Flow Rate FiO2 07/30/16 08:00 70 07/30/16 07:56 98.3 19 129/64 94 07/29/16 19:52 Nasal Cannula 2.0 Intake and Output 07/29/16 07/29/16 07/30/16 15:00 23:00 07:00 Intake Total 1000 ml Output Total 850 ml Balance 150 ml Results/Medications Result Diagram: 07/30/16 0700 07/30/16 0700 Results 24 hrs Laboratory Tests Test 07/29/16 11:43 07/29/16 17:10 07/29/16 21:13 07/30/16 07:00 Bedside Glucose 160 97 95 White Blood Count 4.1 #L Red Blood Count 3.82 L Hemoglobin 11.6 L Hematocrit 34.3 L Mean Corpuscular Volume 89.8 Mean Corpuscular Hemoglobin 30.4 Mean Corpuscular Hemoglobin Concent 33.8 Red Cell Distribution Width 16.6 H Platelet Count 68 #L Mean Platelet Volume 11.1 H Neutrophils % 74.0 Band Neutrophils % 2.0 Lymphocytes % 14.0 L Monocytes % 8.0 Eosinophils % 1.0 Myelocytes % 1.0 H Neutrophils # 3.0 Lymphocytes # 0.6 L Monocytes # 0.3 Eosinophils # 0.0 Myelocytes # 0.0 Platelet Estimate PLT APPEAR DECREASED Sodium Level 137 Potassium Level 4.5 Chloride Level 102 Carbon Dioxide Level 23 Anion Gap 17 #H Blood Urea Nitrogen 21 H Creatinine 1.08 Glucose Level 103 # Calcium Level 8.0 L Phosphorus Level 2.9 Magnesium Level 1.7 Test 07/30/16 08:23 Bedside Glucose 113 Medications Current Medications Ondansetron HCl (Zofran Inj) 4 mg Q6H PRN IV NAUSEA AND/OR VOMITING; Start 07/27 at 22:00 Pantoprazole 40 mg 40 mg BID@06,18 IV Last administered on 07/30/16 05:02; Admin Dose 40 MG; Start 07/28/16 at 06:00 Cefepime HCl 50 ml @ 100 mls/hr Q12 IVPB Last administered on 07/29/16 21:28; Admin Dose 100 MLS/HR; Start 07/28/16 at 09:00 Levofloxacin/ Dextrose 150 ml @ 100 mls/hr Q24H IVPB Last administered on 22:29; Admin Dose 100 MLS/HR; Start 07/27/16 at 23:00 Octreotide Acetate/Sodium Chloride (Sandostatin/NS) 100 ml @ 5 mls/hr Q20H IV Last administered on 07/29/16 11:32; Admin Dose 5 MLS/HR; Start 07/28/16 at 02:00 Diagnostic Test (Pha) (Accu-Chek) 1 ea 02 XX ; Start 07/29/16 at 02:00 Miscellaneous Information 1 ea NOTE XX ; Start 07/28/16 at 14:00 Glucose (Glutose) 15 gm Q15M PRN PO DECREASED GLUCOSE; Start 07/28/16 at 14:00 Glucose (Glutose) 22.5 gm Q15M PRN PO DECREASED GLUCOSE; Start 07/28/16 at 14:00 Dextrose (D50w Syringe) 25 ml Q15M PRN IV DECREASED GLUCOSE; Start 07/28/16 at 14:00 Dextrose (D50w Syringe) 50 ml Q15M PRN IV DECREASED GLUCOSE; Start 07/28/16 at 14:00 Glucagon (Glucagen) 1 mg Q15M PRN IM DECREASED GLUCOSE; Start 07/28/16 at 14:00 Glucose (Glutose) 15 gm Q15M PRN BUCCAL DECREASED GLUCOSE; Start 07/28/16 at 14: 00 Lactulose (Enulose) 10 gm Q8 PO Last administered on 07/30/16 05:02; Admin Dose 10 GM; Start 07/29/16 at 12:45; Stop 07/31/16 at 13:59 Methadone HCl (Methadone) 30 mg Q8 PO Last administered on 07/30/16 05:03; Admin Dose 30 MG; Start 07/29/16 at 22:00 Morphine Sulfate (Roxanol) 30 mg QID PRN PO PAIN Last administered on 07/30/16 08:12; Admin Dose 30 MG; Start 07/29/16 at 19:00 Clonidine (Catapres) 0.1 mg BID PO ; Start 07/30/16 at 11:00 Assessment/Plan Chief Complaint/Hosp Course Assessment 1. Transient hemoptysis 2. Community-acquired pneumonia 3. History of renal cell carcinoma status post ablation 4. History of chronic cirrhosis status post TIPS procedure 5. History of thrombocytopenia secondary to above Plan 1. Continue antibiotics 2. Monitor platelet count 3. Consider discharge, repeat CT chest 2 months. Problems: BERT BOURGEOIS MD, [facility] July 30, 2016 11:36
--- NOTE | 2016-07-30 11:54 | CONS ---
Date/Time of Note Date/Time of Note DATE: 07/30/16 TIME: 11:52 Assessment/Plan Assessment/Plan Additional Assessment/Plan Liver Cirrhosis Status post TIPS procedure Monitor ascites Paracentesis prn Fluid cytology with paracentesis 2gm Na Diet Recommend EGD Q 3 months for variceal surveillance Hematemsis/hemoptysis Collect stool OBx2 Monitor hemoglobin daily, transfuse 1 unit for hemoglobin less than 7.5, transfuse 2 units for hemoglobin less than 7.0 History of hepatitis C Hepatitis C RNA and genotype Monitor liver function tests Question of hepatic encephalopathy Lactulose 3 times daily for 2 days Monitor ammonia levels Further recommendations depend on clinical course Patient seen in collaboration with Dr. Gruber Consultation Date/Type/Reason Admit Date/Time July 27, 2016 at 19:18 Initial Consult Date 07/28/16 Type of Consultation: Gastroenterology 24 HR Interval Summary Free Text/Dictation Patient continues to report diffuse all over body pain. Patient reports diffuse abdominal pain Patient reports last bowel movement on Monday Reports intermittent episodes of hemoptysis Will prep for EGD and colonoscopy on Monday Exam/Review of Systems Vital Signs Vitals Vital Signs Date Time Temp Pulse Resp B/P Pulse Ox O2 Delivery O2 Flow Rate FiO2 07/30/16 11:45 98.0 77 20 158/74 95 07/29/16 19:52 Nasal Cannula 2.0 Intake and Output 07/29/16 07/29/16 07/30/16 15:00 23:00 07:00 Intake Total 1000 ml Output Total 850 ml Balance 150 ml Exam Constitutional: alert, oriented, well developed Psych: nl mood/affect Head: normocephalic Eyes: EOMI, nl conjunctiva, nl lids ENMT: nl external ears & nose, nl lips & teeth, nl nasal mucosa & septum Respiratory: clear to auscultation, normal air movement Cardiovascular: regular rate and rhythm Gastrointestinal: soft, diffuse abdominal tenderness with palpation Musculoskeletal: nl extremities to inspection Neurological: CUFFER II-XII intact Results Result Diagram: 07/30/16 0700 07/30/16 0700 Results 24 hrs Laboratory Tests Test 07/29/16 17:10 07/29/16 21:13 07/30/16 07:00 07/30/16 08:23 Bedside Glucose 97 95 113 White Blood Count 4.1 #L Red Blood Count 3.82 L Hemoglobin 11.6 L Hematocrit 34.3 L Mean Corpuscular Volume 89.8 Mean Corpuscular Hemoglobin 30.4 Mean Corpuscular Hemoglobin Concent 33.8 Red Cell Distribution Width 16.6 H Platelet Count 68 #L Mean Platelet Volume 11.1 H Neutrophils % 74.0 Band Neutrophils % 2.0 Lymphocytes % 14.0 L Monocytes % 8.0 Eosinophils % 1.0 Myelocytes % 1.0 H Neutrophils # 3.0 Lymphocytes # 0.6 L Monocytes # 0.3 Eosinophils # 0.0 Myelocytes # 0.0 Platelet Estimate PLT APPEAR DECREASED Sodium Level 137 Potassium Level 4.5 Chloride Level 102 Carbon Dioxide Level 23 Anion Gap 17 #H Blood Urea Nitrogen 21 H Creatinine 1.08 Glucose Level 103 # Calcium Level 8.0 L Phosphorus Level 2.9 Magnesium Level 1.7 Medications Medications Current Medications Ondansetron HCl (Zofran Inj) 4 mg Q6H PRN IV NAUSEA AND/OR VOMITING; Start 07/27 at 22:00 Pantoprazole 40 mg 40 mg BID@06,18 IV Last administered on 07/30/16 05:02; Admin Dose 40 MG; Start 07/28/16 at 06:00 Cefepime HCl 50 ml @ 100 mls/hr Q12 IVPB Last administered on 07/29/16 21:28; Admin Dose 100 MLS/HR; Start 07/28/16 at 09:00 Levofloxacin/ Dextrose 150 ml @ 100 mls/hr Q24H IVPB Last administered on 22:29; Admin Dose 100 MLS/HR; Start 07/27/16 at 23:00 Octreotide Acetate/Sodium Chloride (Sandostatin/NS) 100 ml @ 5 mls/hr Q20H IV Last administered on 07/29/16 11:32; Admin Dose 5 MLS/HR; Start 07/28/16 at 02:00 Diagnostic Test (Pha) (Accu-Chek) 1 ea 02 XX ; Start 07/29/16 at 02:00 Miscellaneous Information 1 ea NOTE XX ; Start 07/28/16 at 14:00 Glucose (Glutose) 15 gm Q15M PRN PO DECREASED GLUCOSE; Start 07/28/16 at 14:00 Glucose (Glutose) 22.5 gm Q15M PRN PO DECREASED GLUCOSE; Start 07/28/16 at 14:00 Dextrose (D50w Syringe) 25 ml Q15M PRN IV DECREASED GLUCOSE; Start 07/28/16 at 14:00 Dextrose (D50w Syringe) 50 ml Q15M PRN IV DECREASED GLUCOSE; Start 07/28/16 at 14:00 Glucagon (Glucagen) 1 mg Q15M PRN IM DECREASED GLUCOSE; Start 07/28/16 at 14:00 Glucose (Glutose) 15 gm Q15M PRN BUCCAL DECREASED GLUCOSE; Start 07/28/16 at 14: 00 Lactulose (Enulose) 10 gm Q8 PO Last administered on 07/30/16 05:02; Admin Dose 10 GM; Start 07/29/16 at 12:45; Stop 07/31/16 at 13:59 Methadone HCl (Methadone) 30 mg Q8 PO Last administered on 07/30/16 05:03; Admin Dose 30 MG; Start 07/29/16 at 22:00 Morphine Sulfate (Roxanol) 30 mg QID PRN PO PAIN Last administered on 07/30/16 08:12; Admin Dose 30 MG; Start 07/29/16 at 19:00 Clonidine (Catapres) 0.1 mg BID PO ; Start 07/30/16 at 11:00 RADHA PEDRO July 30, 2016 11:54
--- NOTE | 2016-07-30 16:55 | PN ---
Date/Time of Note Date/Time of Note DATE: 07/30/16 TIME: 16:53 Assessment/Plan VTE Prophylaxis VTE Prophylaxis Intervention: contraindicated Lines/Catheters IV [facility] Saline Lock Urinary Cath still in place: No Assessment/Plan Chief Complaint/Hosp Course 1. Community-acquired pneumonia. The patient currently on antibiotics. No evidence of any septic shock. 2. Hematemesis/hemoptysis. The patient has known history of hepatitis and liver cirrhosis. The patient is status post TIPS procedure. The patient will be maintained on proton pump inhibitors. Blood transfusion will be given as needed. The patient is being followed by gastroenterology. The patient on Sandostatin drip. 3. Acute on chronic kidney disease. The patient has baseline chronic kidney disease stage III. The patient came in with worsening creatinine. The patient' s creatinine has improved. Nephrotoxic drugs will be used with caution. 4. Type 2 diabetes mellitus. Hemoglobin A1c is 6.3. The patient is on sliding scale insulin. 5. Thrombocytopenia. Most probably secondary to underlying liver cirrhosis. We will monitor. We avoid any antiplatelet medications. 6. Normocytic normochromic anemia. Most probably anemia of acute blood loss. Stool for OB pending at this time. Continue proton pump inhibitors. Gastroenterology following. 7. 9 mm spiculated mass in the right upper lobe. The patient is being followed by pulmonology. Continue to monitor. 8. Chronic pain. The patient takes methadone at home. Continue methadone. Being followed by the pain management team. 9. Liver cirrhosis. Continue lactulose. 10. Fluid, electrolytes and nutrition. Carbohydrate controlled diet. 11. Deep venous thrombosis prophylaxis. Chemical DVT prophylaxis is contraindicated because of thrombocytopenia. 12. Gastrointestinal prophylaxis. Proton pump inhibitors. PLAN: Continue current management. Await further recommendations from consultants. Case discussed with Dr. Vidales. Problems: Subjective 24 Hr Interval Summary Free Text/Dictation Earlier in the morning, the patient wanted to leave the hospital AGAINST MEDICAL ADVICE. But later after talking to the patient, he agreed to stay. Exam/Review of Systems Vital Signs Vitals Vital Signs Date Time Temp Pulse Resp B/P Pulse Ox O2 Delivery O2 Flow Rate FiO2 07/30/16 15:56 98.0 71 18 129/63 97 07/29/16 19:52 Nasal Cannula 2.0 Intake and Output 07/29/16 07/29/16 07/30/16 15:00 23:00 07:00 Intake Total 1000 ml Output Total 850 ml Balance 150 ml Exam GENERAL: This is a morbidly obese male patient lying in bed in no apparent distress. HEENT: Head normocephalic and atraumatic. Eyes: Anicteric sclerae. Conjunctivae clear. ENT: Nasal septum is midline. Oral mucosa is dry. NECK: Supple. No JVD noticed. RESPIRATORY: Bilaterally diminished breath sounds. No use of accessory muscles of respiration. CARDIAC: Regular rate and rhythm. S1 and S2 heard. ABDOMEN: Obese. Nontender. Bowel sounds hypoactive in all 4 quadrants. GENITOURINARY: Deferred. EXTREMITIES: No cyanosis, no clubbing. Bilateral lower extremity discoloration probably from venous stasis with bilateral lower extremity 2+ pitting edema. Peripheral pulses palpable. NEUROLOGIC: The patient is awake, alert and oriented. Cranial nerves are grossly intact. Results Result Diagram: 07/30/16 0700 07/30/16 0700 Results 24 hrs Laboratory Tests Test 07/29/16 17:10 07/29/16 21:13 07/30/16 07:00 07/30/16 08:23 Bedside Glucose 97 95 113 White Blood Count 4.1 #L Red Blood Count 3.82 L Hemoglobin 11.6 L Hematocrit 34.3 L Mean Corpuscular Volume 89.8 Mean Corpuscular Hemoglobin 30.4 Mean Corpuscular Hemoglobin Concent 33.8 Red Cell Distribution Width 16.6 H Platelet Count 68 #L Mean Platelet Volume 11.1 H Neutrophils % 74.0 Band Neutrophils % 2.0 Lymphocytes % 14.0 L Monocytes % 8.0 Eosinophils % 1.0 Myelocytes % 1.0 H Neutrophils # 3.0 Lymphocytes # 0.6 L Monocytes # 0.3 Eosinophils # 0.0 Myelocytes # 0.0 Platelet Estimate PLT APPEAR DECREASED Sodium Level 137 Potassium Level 4.5 Chloride Level 102 Carbon Dioxide Level 23 Anion Gap 17 #H Blood Urea Nitrogen 21 H Creatinine 1.08 Glucose Level 103 # Calcium Level 8.0 L Phosphorus Level 2.9 Magnesium Level 1.7 Test 07/30/16 12:08 07/30/16 15:40 Bedside Glucose 120 Ammonia 32 H Medications Medications Current Medications Ondansetron HCl (Zofran Inj) 4 mg Q6H PRN IV NAUSEA AND/OR VOMITING; Start 07/27 at 22:00 Pantoprazole 40 mg 40 mg BID@06,18 IV Last administered on 07/30/16 05:02; Admin Dose 40 MG; Start 07/28/16 at 06:00 Cefepime HCl 50 ml @ 100 mls/hr Q12 IVPB Last administered on 07/29/16 21:28; Admin Dose 100 MLS/HR; Start 07/28/16 at 09:00 Levofloxacin/ Dextrose 150 ml @ 100 mls/hr Q24H IVPB Last administered on 22:29; Admin Dose 100 MLS/HR; Start 07/27/16 at 23:00 Octreotide Acetate/Sodium Chloride (Sandostatin/NS) 100 ml @ 5 mls/hr Q20H IV Last administered on 07/29/16 11:32; Admin Dose 5 MLS/HR; Start 07/28/16 at 02:00 Diagnostic Test (Pha) (Accu-Chek) 1 ea 02 XX ; Start 07/29/16 at 02:00 Miscellaneous Information 1 ea NOTE XX ; Start 07/28/16 at 14:00 Glucose (Glutose) 15 gm Q15M PRN PO DECREASED GLUCOSE; Start 07/28/16 at 14:00 Glucose (Glutose) 22.5 gm Q15M PRN PO DECREASED GLUCOSE; Start 07/28/16 at 14:00 Dextrose (D50w Syringe) 25 ml Q15M PRN IV DECREASED GLUCOSE; Start 07/28/16 at 14:00 Dextrose (D50w Syringe) 50 ml Q15M PRN IV DECREASED GLUCOSE; Start 07/28/16 at 14:00 Glucagon (Glucagen) 1 mg Q15M PRN IM DECREASED GLUCOSE; Start 07/28/16 at 14:00 Glucose (Glutose) 15 gm Q15M PRN BUCCAL DECREASED GLUCOSE; Start 07/28/16 at 14: 00 Lactulose (Enulose) 10 gm Q8 PO Last administered on 07/30/16 14:48; Admin Dose 10 GM; Start 07/29/16 at 12:45; Stop 07/31/16 at 13:59 Methadone HCl (Methadone) 30 mg Q8 PO Last administered on 07/30/16 14:30; Admin Dose 30 MG; Start 07/29/16 at 22:00 Morphine Sulfate (Roxanol) 30 mg QID PRN PO PAIN Last administered on 07/30/16 14:30; Admin Dose 30 MG; Start 07/29/16 at 19:00 Clonidine (Catapres) 0.1 mg BID PO Last administered on 07/30/16 12:04; Admin Dose 0.1 MG; Start 07/30/16 at 11:00 KATE CARCAMO NP July 30, 2016 16:55
[2016-07-30] MEDS: OCTREOTIDE 1 MG in SOD CHLORIDE 0.9% 95 ML IV SCH (16:58)
--- NOTE | 2016-07-30 19:10 | RADRPT ---
PROCEDURE: XR Chest. CLINICAL INDICATION: Shortness of breath. TECHNIQUE: Single frontal view. COMPARISON: 07/28/2016. FINDINGS: The lungs are clear. The heart is enlarged. There is no pleural effusion. There is no pneumothorax. IMPRESSION: 1. Cardiomegaly. 2. Clear lungs. RPTAT: QQ .Johny Parekh MD, MD Date Time Electronically viewed and signed by .Johny Parekh MD, MD on 07/30/2016 19:10 .R/
[2016-07-30] MEDS: METOCLOPRAMIDE 5 MG TAB PO SCH (21:17)
[2016-07-30] MEDS: LEVOFLOXACIN 750MG/D5W (PMX) 150 ML IVPB SCH (22:57)
[2016-07-31] MEDS: CEFEPIME 1GM/50 ML IVPB SCH ×3 (01:00→20:00)
[2016-07-31] MEDS: ACCU-CHEK XX SCH (02:00)
[2016-07-31] MEDS: PANTOPRAZOLE 40 MG INJ IV SCH ×2 (05:45→18:12)
[2016-07-31] MEDS: LACTULOSE 30ML CUP PO SCH ×2 (05:45→13:29)
[2016-07-31] MEDS: METHADONE 10 MG TAB PO SCH ×3 (05:46→21:03)
[2016-07-31 06:58] VITALS: BP 150/75; RESP 16
[2016-07-31] MEDS: INSULIN ASPART [NOVOLOG] 3 ML PEN SC SCH ×4 (07:50→20:12)
[2016-07-31 08:00] LABS: ADD SCAN DIFF NO
[2016-07-31 08:10] LABS: ABNORMAL IP MESSAGE 1; HEMATOCRIT 35.1 % (42.0-52.0); HEMOGLOBIN 11.9 g/dl (14.0-18.0); MEAN CORPUSCULAR HGB CONC 33.9 g/dl (32.0-37.0); MEAN CORPUSCULAR VOLUME 88.4 fl (82.0-101.0); MEAN PLATELET VOLUME 10.7 fl (7.4-10.4); PLATELET COUNT 73 10^3/UL (140-415); RED BLOOD COUNT 3.97 10^6/ul (4.70-6.10); RED CELL DISTRIBUTION WIDTH 16.3 % (11.5-14.5); WHITE BLOOD COUNT 3.6 10^3/ul (4.8-10.8)
[2016-07-31 08:21] LABS: MAGNESIUM 1.6 mg/dl (1.7-2.5); PHOSPHORUS 3.4 mg/dl (2.5-4.9); POTASSIUM 4.7 mmol/L (3.5-5.1)
[2016-07-31 08:24] LABS: CREATININE 1.21 mg/dl (0.61-1.24)
[2016-07-31 08:25] LABS: CALCIUM 8.8 mg/dl (8.4-10.2)
[2016-07-31] MEDS: ONDANSETRON 4 MG INJ IV PRN ×2 (08:33→21:00)
[2016-07-31 08:39] VITALS: BP 174/80; RESP 19
--- NOTE | 2016-07-31 09:00 | PN ---
Date/Time of Note Date/Time of Note DATE: 07/31/16 TIME: 08:58 Assessment/Plan VTE Prophylaxis VTE Prophylaxis Intervention: contraindicated Lines/Catheters [facility] Saline [facility] Urinary Cath still in place: No Assessment/Plan Chief Complaint/Hosp Course 1. Community-acquired pneumonia. The patient currently on antibiotics. No evidence of any septic shock. 2. Hematemesis/hemoptysis. The patient has known history of hepatitis and liver cirrhosis. The patient is status post TIPS procedure. The patient will be maintained on proton pump inhibitors. Blood transfusion will be given as needed. The patient is being followed by gastroenterology. The patient on Sandostatin drip. 3. Acute on chronic kidney disease. The patient has baseline chronic kidney disease stage III. The patient came in with worsening creatinine. The patient' s creatinine has improved. Nephrotoxic drugs will be used with caution. 4. Type 2 diabetes mellitus. Hemoglobin A1c is 6.3. The patient is on sliding scale insulin. 5. Thrombocytopenia. Most probably secondary to underlying liver cirrhosis. We will monitor. We avoid any antiplatelet medications. 6. Normocytic normochromic anemia. Most probably anemia of acute blood loss. Stool for OB pending at this time. Continue proton pump inhibitors. Gastroenterology following. 7. 9 mm spiculated mass in the right upper lobe. The patient is being followed by pulmonology. Continue to monitor. 8. Chronic pain. The patient takes methadone at home. Continue methadone. Being followed by pain management team. 9. Liver cirrhosis. Continue lactulose. 10. Fluid, electrolytes and nutrition. Carbohydrate controlled diet. 11. Deep venous thrombosis prophylaxis. Chemical DVT prophylaxis is contraindicated because of thrombocytopenia. 12. Gastrointestinal prophylaxis. Proton pump inhibitors. PLAN: Continue current management. Await further recommendations from consultants. EGDscopy and colonoscopy on 08/01/2016 as per GI. Case discussed with Dr. Vidales. Problems: Subjective 24 Hr Interval Summary Free Text/Dictation Vital signs stable. The patient is currently in a Med/Surg floor. Denies any hemoptysis. Exam/Review of Systems Vital Signs Vitals Vital Signs Date Time Temp Pulse Resp B/P Pulse Ox O2 Delivery O2 Flow Rate FiO2 07/31/16 08:39 98.0 72 19 174/80 98 07/31/16 06:58 Room Air 07/30/16 20:00 2.0 Intake and Output 07/30/16 07/30/16 07/31/16 15:00 23:00 07:00 Intake Total 1650 ml 1760 ml Balance 1650 ml 1760 ml Exam GENERAL: This is a morbidly obese male patient lying in bed in no apparent distress. HEENT: Head normocephalic and atraumatic. Eyes: Anicteric sclerae. Conjunctivae clear. ENT: Nasal septum is midline. Oral mucosa is dry. NECK: Supple. No JVD noticed. RESPIRATORY: Bilaterally diminished breath sounds. No use of accessory muscles of respiration. CARDIAC: Regular rate and rhythm. S1 and S2 heard. ABDOMEN: Obese. Nontender. Bowel sounds hypoactive in all 4 quadrants. GENITOURINARY: Deferred. EXTREMITIES: No cyanosis, no clubbing. Bilateral lower extremity discoloration probably from venous stasis with bilateral lower extremity 2+ pitting edema. Peripheral pulses palpable. NEUROLOGIC: The patient is awake, alert and oriented. Cranial nerves are grossly intact. Results Result Diagram: 07/31/16 0710 07/31/16 0710 Results 24 hrs Laboratory Tests Test 07/30/16 12:08 07/30/16 15:40 07/30/16 17:08 07/30/16 20:30 Bedside Glucose 120 99 129 Ammonia 32 H Test 07/31/16 07:10 07/31/16 08:12 White Blood Count 3.6 L Red Blood Count 3.97 L Hemoglobin 11.9 L Hematocrit 35.1 L Mean Corpuscular Volume 88.4 Mean Corpuscular Hemoglobin 30.0 Mean Corpuscular Hemoglobin Concent 33.9 Red Cell Distribution Width 16.3 H Platelet Count 73 L Mean Platelet Volume 10.7 H Sodium Level 137 Potassium Level 4.7 Chloride Level 100 Carbon Dioxide Level 27 Anion Gap 15 Blood Urea Nitrogen 22 H Creatinine 1.21 Glucose Level 190 Calcium Level 8.8 Phosphorus Level 3.4 Magnesium Level 1.6 L Ammonia 39 H Bedside Glucose 139 Medications Medications Current Medications Ondansetron HCl (Zofran Inj) 4 mg Q6H PRN IV NAUSEA AND/OR VOMITING Last administered on 07/31/16 08:33; Admin Dose 4 MG; Start 07/27/16 at 22:00 Pantoprazole 40 mg 40 mg BID@06,18 IV Last administered on 07/31/16 05:45; Admin Dose 40 MG; Start 07/28/16 at 06:00 Levofloxacin/ Dextrose 150 ml @ 100 mls/hr Q24H IVPB Last administered on 22:57; Admin Dose 100 MLS/HR; Start 07/27/16 at 23:00 Octreotide Acetate/Sodium Chloride (Sandostatin/NS) 100 ml @ 5 mls/hr Q20H IV Last administered on 07/30/16 16:58; Admin Dose 5 MLS/HR; Start 07/28/16 at 02:00 Diagnostic Test (Pha) (Accu-Chek) 1 ea 02 XX ; Start 07/29/16 at 02:00 Miscellaneous Information 1 ea NOTE XX ; Start 07/28/16 at 14:00 Glucose (Glutose) 15 gm Q15M PRN PO DECREASED GLUCOSE; Start 07/28/16 at 14:00 Glucose (Glutose) 22.5 gm Q15M PRN PO DECREASED GLUCOSE; Start 07/28/16 at 14:00 Dextrose (D50w Syringe) 25 ml Q15M PRN IV DECREASED GLUCOSE; Start 07/28/16 at 14:00 Dextrose (D50w Syringe) 50 ml Q15M PRN IV DECREASED GLUCOSE; Start 07/28/16 at 14:00 Glucagon (Glucagen) 1 mg Q15M PRN IM DECREASED GLUCOSE; Start 07/28/16 at 14:00 Glucose (Glutose) 15 gm Q15M PRN BUCCAL DECREASED GLUCOSE; Start 07/28/16 at 14: 00 Lactulose (Enulose) 10 gm Q8 PO Last administered on 07/31/16 05:45; Admin Dose 10 GM; Start 07/29/16 at 12:45; Stop 07/31/16 at 13:59 Methadone HCl (Methadone) 30 mg Q8 PO Last administered on 07/31/16 05:46; Admin Dose 30 MG; Start 07/29/16 at 22:00 Morphine Sulfate (Roxanol) 30 mg QID PRN PO PAIN Last administered on 07/30/16 21:18; Admin Dose 30 MG; Start 07/29/16 at 19:00 Clonidine (Catapres) 0.1 mg BID PO Last administered on 07/31/16 08:31; Admin Dose 0.1 MG; Start 07/30/16 at 11:00 Metoclopramide HCl 5 mg 5 mg TID PO Last administered on 07/30/16 21:17; Admin Dose 5 MG; Start 07/30/16 at 21:00 Cefepime HCl (Maxipime 1gm/50 ml (Pmx)) 50 ml @ 100 mls/hr Q12 IVPB Last administered on 07/31/16 01:00; Admin Dose 100 MLS/HR; Start 07/31/16 at 01:00 KATE CARCAMO NP July 31, 2016 09:00
[2016-07-31] MEDS: METOCLOPRAMIDE 5 MG TAB PO SCH ×3 (10:03→21:03)
[2016-07-31] MEDS ORDERED: MAGNESIUM SULFATE 2 GM/50 ML 50 ML IVPB ONE (10:15)
[2016-07-31 13:11] LABS: EOSINOPHILS # 0.1 10^3/ul (0.0-0.5); LYMPHOCYTES # 0.4 10^3/ul (0.8-2.9); MONOCYTE # 0.3 10^3/ul (0.3-0.9); MYELOCYTES # 0.1; NEUTROPHIL # 2.6 10^3/ul (1.6-7.5)
[2016-07-31 13:12] LABS: PLATELET ESTIMATE PLT APPEAR DECREASED; POLYCHROMASIA OCCASIONAL
[2016-07-31] MEDS: morphine LIQ (20 MG/ML PO SYG) PO PRN ×2 (13:28→23:55)
--- NOTE | 2016-07-31 13:34 | CONS ---
Date/Time of Note Date/Time of Note DATE: 07/31/16 TIME: 13:31 Assessment/Plan Assessment/Plan Additional Assessment/Plan Liver Cirrhosis Status post TIPS procedure Monitor ascites Paracentesis prn Fluid cytology with paracentesis 2gm Na Diet Recommend EGD Q 3 months for variceal surveillance Hematemsis/hemoptysis Collect stool OBx2 Monitor hemoglobin daily, transfuse 1 unit for hemoglobin less than 7.5, transfuse 2 units for hemoglobin less than 7.0 History of hepatitis C Hepatitis C RNA and genotype Monitor liver function tests Question of hepatic encephalopathy Lactulose 3 times daily Monitor ammonia levels Further recommendations depend on clinical course Patient seen in collaboration with Dr. Gruber Consultation Date/Type/Reason Admit Date/Time July 27, 2016 at 19:18 Initial Consult Date 07/28/16 Type of Consultation: Gastroenterology 24 HR Interval Summary Free Text/Dictation Abdominal ultrasound to address patency of TIPS Patient continues to report diffuse abdominal pain. Patient tolerating diet. Patient consents to EGD and colonoscopy tomorrow with Dr. Gruber Exam/Review of Systems Vital Signs Vitals Vital Signs Date Time Temp Pulse Resp B/P Pulse Ox O2 Delivery O2 Flow Rate FiO2 07/31/16 08:39 98.0 72 19 174/80 98 07/31/16 06:58 Room Air 07/30/16 20:00 2.0 Intake and Output 07/30/16 07/30/16 07/31/16 15:00 23:00 07:00 Intake Total 1650 ml 1760 ml Balance 1650 ml 1760 ml Exam Constitutional: alert, oriented, well developed Psych: nl mood/affect Head: normocephalic Eyes: EOMI, nl conjunctiva, nl lids ENMT: nl external ears & nose, nl lips & teeth, nl nasal mucosa & septum Respiratory: clear to auscultation, normal air movement Cardiovascular: regular rate and rhythm Gastrointestinal: soft, diffuse abdominal tenderness with palpation Musculoskeletal: nl extremities to inspection Neurological: PAPER STRIPPER II-XII intact Results Result Diagram: 07/31/16 0710 07/31/16 0710 Results 24 hrs Laboratory Tests Test 07/30/16 15:40 07/30/16 17:08 07/30/16 20:30 07/31/16 07:10 Ammonia 32 H 39 H Bedside Glucose 99 129 White Blood Count 3.6 L Red Blood Count 3.97 L Hemoglobin 11.9 L Hematocrit 35.1 L Mean Corpuscular Volume 88.4 Mean Corpuscular Hemoglobin 30.0 Mean Corpuscular Hemoglobin Concent 33.9 Red Cell Distribution Width 16.3 H Platelet Count 73 L Mean Platelet Volume 10.7 H Neutrophils % 72.0 Lymphocytes % 12.0 L Monocytes % 8.0 Eosinophils % 3.0 Metamyelocytes % 1.0 H Myelocytes % 4.0 H Neutrophils # 2.6 Lymphocytes # 0.4 L Monocytes # 0.3 Eosinophils # 0.1 Metamyelocytes # 0.0 Myelocytes # 0.1 Differential Comment MANUAL DIFF Platelet Estimate PLT APPEAR DECREASED Large Platelets OCCASIONAL Polychromasia OCCASIONAL Sodium Level 137 Potassium Level 4.7 Chloride Level 100 Carbon Dioxide Level 27 Anion Gap 15 Blood Urea Nitrogen 22 H Creatinine 1.21 Glucose Level 190 Calcium Level 8.8 Phosphorus Level 3.4 Magnesium Level 1.6 L Test 07/31/16 08:12 07/31/16 12:38 Bedside Glucose 139 119 Medications Medications Current Medications Ondansetron HCl (Zofran Inj) 4 mg Q6H PRN IV NAUSEA AND/OR VOMITING Last administered on 07/31/16 08:33; Admin Dose 4 MG; Start 07/27/16 at 22:00 Pantoprazole 40 mg 40 mg BID@06,18 IV Last administered on 07/31/16 05:45; Admin Dose 40 MG; Start 07/28/16 at 06:00 Levofloxacin/ Dextrose (Levaquin 750 Mg/ D5W 150 ml (Pmx)) 150 ml @ 100 mls/hr Q24H IVPB Last administered on 07/30/16 22:57; Admin Dose 100 MLS/HR; Start 07/27/16 at 23:00 Diagnostic Test (Pha) (Accu-Chek) 1 ea 02 XX ; Start 07/29/16 at 02:00 Miscellaneous Information 1 ea NOTE XX ; Start 07/28/16 at 14:00 Glucose (Glutose) 15 gm Q15M PRN PO DECREASED GLUCOSE; Start 07/28/16 at 14:00 Glucose (Glutose) 22.5 gm Q15M PRN PO DECREASED GLUCOSE; Start 07/28/16 at 14:00 Dextrose (D50w Syringe) 25 ml Q15M PRN IV DECREASED GLUCOSE; Start 07/28/16 at 14:00 Dextrose (D50w Syringe) 50 ml Q15M PRN IV DECREASED GLUCOSE; Start 07/28/16 at 14:00 Glucagon (Glucagen) 1 mg Q15M PRN IM DECREASED GLUCOSE; Start 07/28/16 at 14:00 Glucose (Glutose) 15 gm Q15M PRN BUCCAL DECREASED GLUCOSE; Start 07/28/16 at 14: 00 Lactulose (Enulose) 10 gm Q8 PO Last administered on 07/31/16 05:45; Admin Dose 10 GM; Start 07/29/16 at 12:45; Stop 07/31/16 at 13:59 Methadone HCl (Methadone) 30 mg Q8 PO Last administered on 07/31/16 05:46; Admin Dose 30 MG; Start 07/29/16 at 22:00 Morphine Sulfate (Roxanol) 30 mg QID PRN PO PAIN Last administered on 07/30/16 21:18; Admin Dose 30 MG; Start 07/29/16 at 19:00 Clonidine (Catapres) 0.1 mg BID PO Last administered on 07/31/16 08:31; Admin Dose 0.1 MG; Start 07/30/16 at 11:00 Metoclopramide HCl 5 mg 5 mg TID PO Last administered on 07/31/16 10:03; Admin Dose 5 MG; Start 07/30/16 at 21:00 Cefepime HCl (Maxipime 1gm/50 ml (Pmx)) 50 ml @ 100 mls/hr Q12 IVPB Last administered on 07/31/16 12:32; Admin Dose 100 MLS/HR; Start 07/31/16 at 01:00 RADHA PEDRO July 31, 2016 13:34
--- NOTE | 2016-07-31 13:53 | CONS ---
Date/Time of Note Date/Time of Note DATE: 07/31/16 TIME: 13:53 Consult Date/Type/Reason Admit Date/Time July 27, 2016 at 19:18 Initial Consult Date 07/28/16 Type of Consultation: pulmonary Subjective Patient still having mild abdominal pain Objective Vital Signs Date Time Temp Pulse Resp B/P Pulse Ox O2 Delivery O2 Flow Rate FiO2 07/31/16 08:39 98.0 72 19 174/80 98 07/31/16 06:58 Room Air 07/30/16 20:00 2.0 Intake and Output 07/30/16 07/30/16 07/31/16 15:00 23:00 07:00 Intake Total 1650 ml 1760 ml Balance 1650 ml 1760 ml Exam Subjective GENERAL: Well-nourished well-developed gentleman comfortable at rest VITAL SIGNS: per chart NECK: Supple. No JVD or lymphadenopathy. CARDIAC EXAM: S1, S2. No added sounds or murmurs. CHEST: clear bilaterally, No added sounds, rales or wheezes ABDOMEN: Soft, nontender. No guarding or rebound. EXTREMITIES: No cyanosis, clubbing or edema. NEUROLOGIC: Generalized weakness. No focal deficits. Results/Medications Result Diagram: 07/31/16 0710 07/31/16 0710 Results 24 hrs Laboratory Tests Test 07/30/16 15:40 07/30/16 17:08 07/30/16 20:30 07/31/16 07:10 Ammonia 32 H 39 H Bedside Glucose 99 129 White Blood Count 3.6 L Red Blood Count 3.97 L Hemoglobin 11.9 L Hematocrit 35.1 L Mean Corpuscular Volume 88.4 Mean Corpuscular Hemoglobin 30.0 Mean Corpuscular Hemoglobin Concent 33.9 Red Cell Distribution Width 16.3 H Platelet Count 73 L Mean Platelet Volume 10.7 H Neutrophils % 72.0 Lymphocytes % 12.0 L Monocytes % 8.0 Eosinophils % 3.0 Metamyelocytes % 1.0 H Myelocytes % 4.0 H Neutrophils # 2.6 Lymphocytes # 0.4 L Monocytes # 0.3 Eosinophils # 0.1 Metamyelocytes # 0.0 Myelocytes # 0.1 Differential Comment MANUAL DIFF Platelet Estimate PLT APPEAR DECREASED Large Platelets OCCASIONAL Polychromasia OCCASIONAL Sodium Level 137 Potassium Level 4.7 Chloride Level 100 Carbon Dioxide Level 27 Anion Gap 15 Blood Urea Nitrogen 22 H Creatinine 1.21 Glucose Level 190 Calcium Level 8.8 Phosphorus Level 3.4 Magnesium Level 1.6 L Test 07/31/16 08:12 07/31/16 12:38 Bedside Glucose 139 119 Medications Current Medications Ondansetron HCl (Zofran Inj) 4 mg Q6H PRN IV NAUSEA AND/OR VOMITING Last administered on 07/31/16 08:33; Admin Dose 4 MG; Start 07/27/16 at 22:00 Pantoprazole 40 mg 40 mg BID@06,18 IV Last administered on 07/31/16 05:45; Admin Dose 40 MG; Start 07/28/16 at 06:00 Levofloxacin/ Dextrose (Levaquin 750 Mg/ D5W 150 ml (Pmx)) 150 ml @ 100 mls/hr Q24H IVPB Last administered on 07/30/16 22:57; Admin Dose 100 MLS/HR; Start 07/27/16 at 23:00 Diagnostic Test (Pha) (Accu-Chek) 1 ea 02 XX ; Start 07/29/16 at 02:00 Miscellaneous Information 1 ea NOTE XX ; Start 07/28/16 at 14:00 Glucose (Glutose) 15 gm Q15M PRN PO DECREASED GLUCOSE; Start 07/28/16 at 14:00 Glucose (Glutose) 22.5 gm Q15M PRN PO DECREASED GLUCOSE; Start 07/28/16 at 14:00 Dextrose (D50w Syringe) 25 ml Q15M PRN IV DECREASED GLUCOSE; Start 07/28/16 at 14:00 Dextrose (D50w Syringe) 50 ml Q15M PRN IV DECREASED GLUCOSE; Start 07/28/16 at 14:00 Glucagon (Glucagen) 1 mg Q15M PRN IM DECREASED GLUCOSE; Start 07/28/16 at 14:00 Glucose (Glutose) 15 gm Q15M PRN BUCCAL DECREASED GLUCOSE; Start 07/28/16 at 14: 00 Lactulose (Enulose) 10 gm Q8 PO Last administered on 07/31/16 13:29; Admin Dose 10 GM; Start 07/29/16 at 12:45; Stop 07/31/16 at 13:59 Methadone HCl (Methadone) 30 mg Q8 PO Last administered on 07/31/16 05:46; Admin Dose 30 MG; Start 07/29/16 at 22:00 Morphine Sulfate (Roxanol) 30 mg QID PRN PO PAIN Last administered on 07/31/16 13:28; Admin Dose 30 MG; Start 07/29/16 at 19:00 Clonidine (Catapres) 0.1 mg BID PO Last administered on 07/31/16 08:31; Admin Dose 0.1 MG; Start 07/30/16 at 11:00 Metoclopramide HCl 5 mg 5 mg TID PO Last administered on 07/31/16 13:29; Admin Dose 5 MG; Start 07/30/16 at 21:00 Cefepime HCl (Maxipime 1gm/50 ml (Pmx)) 50 ml @ 100 mls/hr Q12 IVPB Last administered on 07/31/16 12:32; Admin Dose 100 MLS/HR; Start 07/31/16 at 01:00 Bisacodyl (Dulcolax) 10 mg ONCE ONCE PO ; Start 07/31/16 at 16:00; Stop 07/31/16 at 16:01 Magnesium Citrate (Citroma) 300 ml ONCE ONCE PO ; Start 07/31/16 at 17:00; Stop 07/31/16 at 17:01 Polyethylene Glycol (Miralax) 119 gm ONCE ONCE PO ; Start 07/31/16 at 18:00; Stop 07/31/16 at 18:01 Assessment/Plan Chief Complaint/Hosp Course Assessment 1. Transient hemoptysis 2. Community-acquired pneumonia 3. History of renal cell carcinoma status post ablation 4. History of chronic cirrhosis status post TIPS procedure 5. History of thrombocytopenia secondary to above Plan 1. Continue antibiotics 2. Monitor platelet count 3. Pending EGD and colonoscopy tomorrow Problems: B[facility] BOURGEOIS [facility], [facility] July 31, 2016 13:53
[2016-07-31] MEDS ORDERED: BISACODYL (EC) 5 MG TAB PO ONE ×2 (16:00→20:00)
[2016-07-31] MEDS ORDERED: MAGNESIUM CITRATE 300 ML BTL PO ONE (17:00)
[2016-07-31] MEDS ORDERED: POLYETHYLENE GLYCOL 3350 119 GM POWDER PO ONE ×2 (18:00→20:00)
[2016-07-31 19:29] VITALS: BP 140/67; RESP 20
[2016-07-31] MEDS ORDERED: ALBUTEROL/IPRATROPIUM (NEB) 3 ML AMP HHN STA (20:15)
[2016-07-31] MEDS ORDERED: VITAMIN A & D 5 GM OINT PACKET TOP ONE (21:54)
[2016-07-31] MEDS: LEVOFLOXACIN 750MG/D5W (PMX) 150 ML IVPB SCH (23:58)
[2016-08-01] MEDS: ACCU-CHEK XX SCH (02:00)
[2016-08-01 05:17] LABS: ADD SCAN DIFF NO
[2016-08-01 05:36] LABS: ALBUMIN 3.4 g/dl (3.3-4.9); POTASSIUM 4.7 mmol/L (3.5-5.1)
[2016-08-01 05:38] LABS: BILIRUBIN,INDIRECT 0.9 mg/dl (0-1.1); BILIRUBIN,TOTAL 0.9 mg/dl (0.2-1.3); CREATININE 1.24 mg/dl (0.61-1.24)
[2016-08-01 05:39] LABS: INR 1.3; PROTIME 16.3 Sec (12.2-14.2); PT RATIO 1.3; TOTAL PROTEIN 6.8 g/dl (6.1-8.1)
[2016-08-01 05:39] LABS: MAGNESIUM 2.1 mg/dl (1.7-2.5); PHOSPHORUS 2.8 mg/dl (2.5-4.9)
[2016-08-01 05:40] LABS: ABNORMAL IP MESSAGE 1; BASOPHILS % 0.6 % (0.0-2.0); CALCIUM 8.9 mg/dl (8.4-10.2); EOSINOPHILS # 0.1 10^3/ul (0.0-0.5); EOSINOPHILS % 1.9 % (0.0-7.0); HEMATOCRIT 32.8 % (42.0-52.0); HEMOGLOBIN 10.9 g/dl (14.0-18.0); LYMPHOCYTES # 0.5 10^3/ul (0.8-2.9); LYMPHOCYTES % 15.5 % (15.0-51.0); MEAN CORPUSCULAR HEMOGLOBIN 29.7 pg (29.0-33.0); MEAN CORPUSCULAR HGB CONC 33.2 g/dl (32.0-37.0); MEAN CORPUSCULAR VOLUME 89.4 fl (82.0-101.0); MEAN PLATELET VOLUME 11.6 fl (7.4-10.4); MONOCYTE # 0.4 10^3/ul (0.3-0.9); MONOCYTES % 12.3 % (0.0-11.0); NEUTROPHIL # 2.2 10^3/ul (1.6-7.5); NEUTROPHILS % 68.8 % (39.0-77.0); PARTIAL THROMBOPLASTIN TIME 38.4 Sec (25.0-35.0); PLATELET COUNT 62 10^3/UL (140-415); RED BLOOD COUNT 3.67 10^6/ul (4.70-6.10); RED CELL DISTRIBUTION WIDTH 16.5 % (11.5-14.5); WHITE BLOOD COUNT 3.2 10^3/ul (4.8-10.8)
[2016-08-01] MEDS: PANTOPRAZOLE 40 MG INJ IV SCH ×2 (05:42→18:00)
[2016-08-01] MEDS: METHADONE 10 MG TAB PO SCH ×3 (06:00→21:11)
[2016-08-01] MEDS: CEFEPIME 1GM/50 ML IVPB SCH ×2 (09:00→20:49)
[2016-08-01] MEDS: METOCLOPRAMIDE 5 MG TAB PO SCH ×3 (09:00→20:29)
[2016-08-01] MEDS: INSULIN ASPART [NOVOLOG] 3 ML PEN SC SCH ×4 (09:06→20:28)
--- NOTE | 2016-08-01 10:38 | RADRPT ---
PROCEDURE: Ultrasound liver CLINICAL INDICATION: Abdominal pain. TECHNIQUE: Multiple escobar scale and color Doppler images of the liver were acquired utilizing a cur osbaldo array transducer. Images were reviewed on a high-resolution PACS workstation. COMPARISON: Abdominal ultrasound dated 07/29/2016. FINDINGS: There is diffuse coarsened echogenicity of the liver, which is nodular in contour, suggestive of mor phologic changes of cirrhosis. There is a TIPS in place, which is patent with velocities measuring 1 48, 174, and 205 cm/sec at the proximal, mid, and distal aspects, respectively. The portal vein is p atent with a flow velocity of 62.4 cm/sec. IMPRESSION: 1. Morphologic changes suggestive of cirrhosis. 2. Patent TIPS demonstrate increased flow velocity at the distal aspect, suspicious for underlying flow-limiting stenosis. RPTAT: EE .Malik Martins MD, MD Date Time Electronically viewed and signed by .Malik Martins MD, MD on 08/01/2016 10:38 .P/
--- NOTE | 2016-08-01 10:52 | PN ---
Date/Time of Note Date/Time of Note DATE: 08/01/16 TIME: 10:49 Assessment/Plan VTE Prophylaxis VTE Prophylaxis Intervention: ambulation, SCD's Lines/Catheters IV [facility]from [facility] Urinary Cath still in place: No Assessment/Plan Chief Complaint/Hosp Course Assessment and plan 1. Community-acquired pneumonia. Continue antibiotics. Appears to be improving at present.medical director occupational health following. Tentative plan for EGD/ colonoscopy. Patient status post octreotide drip 3. Acute on likely chronic kidney disease. Renal function improving. Medications to be renally dosed. Avoid effects of medications as possible. 4. Type 2 diabetes. Patient noted with A1c of 6.3. Continue insulin regimen. Will adjust as needed 5. From cytopenia likely secondary to liver cirrhosis. Monitor H&H. Stable at present. 6. Normocytic normochromic anemia. Likely secondary to reported hemoptysis/ is. GI following. Tentative plan for EGD/colonoscopy. 7. 9 mm spiculated mass in right upper lung lobe per CT scan of the chest. Implementation Consultant following. Plan for follow-up CT imaging as outpatient. 8. History of chronic pain. Patient resumed on methadone. Continue with pain management team. 9. Liver cirrhosis. Continue lactulose Disposition and plan: Tentative plan for EGD/colonoscopy. Will follow. Discussed plan of care with Dr. Arzate Problems: Subjective 24 Hr Interval Summary Free Text/Dictation Patient denies any pain at this time. No reports of hemoptysis or hematemesis Exam/Review of Systems Vital Signs Vitals Vital Signs Date Time Temp Pulse Resp B/P Pulse Ox O2 Delivery O2 Flow Rate FiO2 07/31/16 21:19 89 18 95 21 07/31/16 19:29 98.2 140/67 07/31/16 06:58 Room Air 07/30/16 20:00 2.0 Intake and Output 07/31/16 07/31/16 08/01/16 15:00 23:00 07:00 Intake Total 1450 ml 1090 ml Balance 1450 ml 1090 ml Exam Constitutional: alert, oriented Psych: nl mood/affect Eyes: nl conjunctiva Neck: non-tender, supple Respiratory: clear to auscultation, normal air movement Cardiovascular: regular rate and rhythm Gastrointestinal: soft (Minimally protuberant) Musculoskeletal: swelling Neurological: MAINTENANCE SERVICE TECHNICIAN II-XII intact, nl mental status, nl speech Results Result Diagram: 08/01/16 0435 08/01/16 0435 Results 24 hrs Laboratory Tests Test 07/31/16 12:38 07/31/16 17:56 07/31/16 20:12 07/31/16 21:50 Bedside Glucose 119 127 127 Stool Occult Blood NEGATIVE Test 08/01/16 04:33 08/01/16 04:35 Phosphorus Level 2.8 Magnesium Level 2.1 White Blood Count 3.2 L Red Blood Count 3.67 L Hemoglobin 10.9 L Hematocrit 32.8 L Mean Corpuscular Volume 89.4 Mean Corpuscular Hemoglobin 29.7 Mean Corpuscular Hemoglobin Concent 33.2 Red Cell Distribution Width 16.5 H Platelet Count 62 L Mean Platelet Volume 11.6 H Neutrophils % 68.8 Lymphocytes % 15.5 Monocytes % 12.3 H Eosinophils % 1.9 Basophils % 0.6 Nucleated Red Blood Cells % 0.0 Neutrophils # 2.2 Lymphocytes # 0.5 L Monocytes # 0.4 Eosinophils # 0.1 Basophils # 0.0 Nucleated Red Blood Cells # 0.0 Prothrombin Time 16.3 H Prothrombin Time Ratio 1.3 INR International Normalized Ratio 1.30 Activated Partial Thromboplast Time 38.4 H Sodium Level 140 Potassium Level 4.7 Chloride Level 101 Carbon Dioxide Level 30 Anion Gap 14 Blood Urea Nitrogen 24 H Creatinine 1.24 Glucose Level 122 # Calcium Level 8.9 Total Bilirubin 0.9 Direct Bilirubin 0.00 Indirect Bilirubin 0.9 Aspartate Amino Transf (AST/SGOT) 49 H Alanine Aminotransferase (ALT/SGPT) 45 Alkaline Phosphatase 77 Ammonia 20 Total Protein 6.8 Albumin 3.4 Globulin 3.40 H Albumin/Globulin Ratio 1.00 Medications Medications Current Medications Ondansetron HCl (Zofran Inj) 4 mg Q6H PRN IV NAUSEA AND/OR VOMITING Last administered on 07/31/16 21:00; Admin Dose 4 MG; Start 07/27/16 at 22:00 Pantoprazole 40 mg 40 mg BID@06,18 IV Last administered on 08/01/16 05:42; Admin Dose 40 MG; Start 07/28/16 at 06:00 Levofloxacin/ Dextrose (Levaquin 750 Mg/ D5W 150 ml (Pmx)) 150 ml @ 100 mls/hr Q24H IVPB Last administered on 07/31/16 23:58; Admin Dose 100 MLS/HR; Start 07/27/16 at 23:00 Diagnostic Test (Pha) (Accu-Chek) 1 ea 02 XX ; Start 07/29/16 at 02:00 Miscellaneous Information 1 ea NOTE XX ; Start 07/28/16 at 14:00 Glucose (Glutose) 15 gm Q15M PRN PO DECREASED GLUCOSE; Start 07/28/16 at 14:00 Glucose (Glutose) 22.5 gm Q15M PRN PO DECREASED GLUCOSE; Start 07/28/16 at 14:00 Dextrose (D50w Syringe) 25 ml Q15M PRN IV DECREASED GLUCOSE; Start 07/28/16 at 14:00 Dextrose (D50w Syringe) 50 ml Q15M PRN IV DECREASED GLUCOSE; Start 07/28/16 at 14:00 Glucagon (Glucagen) 1 mg Q15M PRN IM DECREASED GLUCOSE; Start 07/28/16 at 14:00 Glucose (Glutose) 15 gm Q15M PRN BUCCAL DECREASED GLUCOSE; Start 07/28/16 at 14: 00 Methadone HCl (Methadone) 30 mg Q8 PO Last administered on 07/31/16 21:03; Admin Dose 30 MG; Start 07/29/16 at 22:00 Morphine Sulfate (Roxanol) 30 mg QID PRN PO PAIN Last administered on 07/31/16 23:55; Admin Dose 30 MG; Start 07/29/16 at 19:00 Clonidine (Catapres) 0.1 mg BID PO Last administered on 07/31/16 20:02; Admin Dose 0.1 MG; Start 07/30/16 at 11:00 Metoclopramide HCl 5 mg 5 mg TID PO Last administered on 07/31/16 21:03; Admin Dose 5 MG; Start 07/30/16 at 21:00 Cefepime HCl (Maxipime 1gm/50 ml (Pmx)) 50 ml @ 100 mls/hr Q12 IVPB Last administered on 07/31/16 20:00; Admin Dose 100 MLS/HR; Start 07/31/16 at 01:00 SUMANTH SOLIZ August 01, 2016 10:52 SUMANTH SOLIZ August 01, 2016 10:52
[2016-08-01] MEDS ORDERED: PROPOFOL 40 ML ONE (17:44)
[2016-08-01 20:25] VITALS: BP 137/63; RESP 19
[2016-08-01] MEDS: morphine LIQ (20 MG/ML PO SYG) PO PRN (20:30)
[2016-08-01] MEDS: LACTULOSE 30ML CUP PO SCH (21:10)
[2016-08-01] MEDS: LEVOFLOXACIN 750MG/D5W (PMX) 150 ML IVPB SCH (22:58)
[2016-08-02] MEDS: ACCU-CHEK XX SCH (02:00)
[2016-08-02] MEDS: morphine LIQ (20 MG/ML PO SYG) PO PRN ×2 (04:22→13:54)
[2016-08-02] MEDS: METHADONE 10 MG TAB PO SCH ×2 (05:30→13:53)
[2016-08-02] MEDS ORDERED: ALBUTEROL/IPRATROPIUM (NEB) 3 ML AMP HHN PRN (05:30)
[2016-08-02] MEDS: PANTOPRAZOLE 40 MG INJ IV SCH (05:31)
[2016-08-02] MEDS: LACTULOSE 30ML CUP PO SCH ×2 (05:31→13:53)
[2016-08-02] MEDS: INSULIN ASPART [NOVOLOG] 3 ML PEN SC SCH ×2 (07:50→11:40)
[2016-08-02] MEDS: METOCLOPRAMIDE 5 MG TAB PO SCH ×2 (08:34→13:53)
[2016-08-02] MEDS: CEFEPIME 1GM/50 ML IVPB SCH (08:35)
[2016-08-02 08:40] VITALS: BP 141/72; RESP 20
--- NOTE | 2016-08-02 10:54 | GILP ---
DATE OF PROCEDURE: PROCEDURE: Esophagogastroduodenoscopy with biopsies. BRIEF HISTORY AND INDICATIONS: The patient is being evaluated for episode of possible hematemesis. PREMEDICATION: Monitored anesthesia care by anesthesiologist. SURGEON: Maki Gruber MD. INSTRUMENT USED: Olympus panendoscope. TECHNIQUE: After informed consent, with the patient/relatives understanding the procedure, its indic ations, potential risks and complications, including but not limited to: allergic reaction, bleeding , perforation or infection, and after all pertinent questions were answered to the patients satisfac tion, the patient/relatives signed witnessed informed consent. Following this, premedication was ad ministered slowly IV push under careful cardiovascular and respiratory monitoring with pulse oximetr y, automatic blood pressure and station superintendent. Once the sedative effect was achieved the patient was place in the left lateral decubitus, the panendoscope was introduced and advanced under visual contr ol. Careful examination of the upper gastrointestinal tract, both on insertion as well as withdrawal of the instrument disclosed the following findings: ESOPHAGUS: The distal esophagus is remarkable with the presence of a small grade I/IV esophageal va rices of no clinical significance. There is erythema and edema of the mucosa at the EG junction. STOMACH: Upon entrance to the stomach, air was insufflated, the gastric gonzalez distended normally. The mucosa of the fundus, body and antrum of the stomach was carefully examined and shows erythema a nd edema of the mucosa as well as congestion possibly representing portal hypertensive gastropathy. Of significance, there is no evidence of fundal gastric varices. A single biopsy was obtained to r ule out H. pylori infection. PYLORUS: The pylorus appears patent and within normal limits, with no evidence of gastric outlet ob struction. DUODENUM: The duodenal mucosa was carefully examined in the duodenal bulb as well as the second por tion of the duodenum and appears unremarkable with no evidence of duodenitis, ulcer or neoplasm. The instrument was then withdrawn, the patient tolerated the procedure well and was transfer out of the endoscopy suite awake, and in good condition to continue recovery under observation IMPRESSION: 1. Grade I/IV esophageal varices of no clinical significance. 2. Moderate distal esophagitis. 3. Gastritis versus portal hypertensive gastropathy. Rule out Helicobacter pylori infection, biops ies obtained. PLAN: The patient will be continued on PPI. Surveillance endoscopy in 3 to 6 months is recommended . Dictated By: MAKI GRUBER MS/NTS Conf#: [id number] DID#: [id number] CC: MAKI GRUBER;*End*
--- NOTE | 2016-08-02 11:07 | GILP ---
DATE OF PROCEDURE: 08/01/2016 NAME OF PROCEDURE: Colonoscopy to cecum. BRIEF HISTORY AND INDICATIONS: The patient is being evaluated for anemia. PREMEDICATION: Monitored anesthesia care by anesthesiologist. TECHNIQUE: After informed consent with the patient understanding the procedure, potential risks and complications as well as alternatives, the patient was placed in the left lateral decubitus. Premed ication had been administered. Following this, digital rectal examination was performed showing no abnormalities. Following this, the Olympus colonoscope was introduced and advanced under visual yasmine dance. Unfortunately, preparation was extremely poor. It appears as if the patient did not take an y of the GoLYTELY as solid stool is present throughout the colon. The instrument was advanced to th e transverse colon, hoping for improvement in his situation in the preparation, but this was not the case, so the procedure was terminated. The instrument was withdrawn reexamining the mucosa in deta il. No additional abnormalities were noted. IMPRESSION: Inadequate preparation renders examination inadequate. PLAN: The patient should have elective colonoscopy as an outpatient. Dictated By: YNES GRUBER MS/ASHKAN Conf#: [id number] DID#: [id number] CC: Ynes Gruber;*EndCC*
[2016-08-02] MEDS ORDERED: CLON0.1T14 PO (11:12)
[2016-08-02] MEDS ORDERED: METO5TAB11 PO (11:12)
[2016-08-02] MEDS ORDERED: SUCR1TAB56 PO (11:12)
[2016-08-02] MEDS ORDERED: RIFA550T4 PO (11:12)
[2016-08-02] MEDS ORDERED: Lactulose PO (11:12)
[2016-08-02] MEDS ORDERED: PROP40TA4 PO (11:15)
--- NOTE | 2016-08-02 11:19 | PDOCDIS ---
Discharge Instructions DIAGNOSIS Discharge Diagnosis: 1. Community acquired pneumonia 2. Esophagitis/ gastritis 3. 9 mm lung no CONDITION Patient Condition: Stable HOME CARE INSTRUCTIONS: Diet Instructions: Reduced SodiumSpecial Diet: Diabeic Carb Count FOLLOW UP/APPOINTMENTS Appointments 1. Follow up with Dr. Ynes Gruber in one week 2. Follow up with Dr. Nick Dao in 2 weeks 3. Follow up with your primary care provider in 2 weeks for follow up of your lung nodule SUMANTH SOLIZ August 02, 2016 11:19
--- NOTE | 2016-08-02 11:54 | PN ---
DATE: 08/02/2016 PAIN MANAGEMENT PROGRESS NOTE Mr. Miller is doing well on current pain control medication including methadone and Roxanol. Den ies nausea, vomiting, chest pain, shortness of breath, cough. Denies pruritus dizziness, hypersomni a . PHYSICAL EXAMINATION: VITAL SIGNS: Blood pressure 141/72, pulse of 93, respirations 20, temperature 98.3 degrees. CHEST: Clear. COR: S1, S2, without S3, S4, murmur, gallop, rub. Normal rate, normal rhythm. NEUROLOGICAL: He is oriented x3. Cranial nerves II through XII are grossly intact. Motor and sens ory findings grossly within normal limits. 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 F ollowup will be done on discharge with his primary care production painter. New recommendati ons are to hold the use of long-acting pain medications as much as possible, continue with just shor t-acting pain medications, but will of course leave that in the considerations for his primary care pain management doctor inpatient. Dictated By: HAMIDA BERTRAND MD, LP/ASHKAN Conf#: [id number] DID#: [id number]
--- NOTE | 2016-08-02 11:58 | CONS ---
DATE OF ADMISSION: 07/27/2016 DATE OF CONSULTATION: 08/02/2016 PAIN MANAGEMENT CONSULTATION HISTORY OF PRESENT ILLNESS: This is a 50-year-old gentleman I was asked to see for chronic pain syn drome. The patient states he has had longstanding history of low back pain secondary to compression fractures of his lumbosacral spine. He states that his pain is primarily located in his back, but he does have radiations into the lower extremities when he exerts himself. He denies any constituti onal symptoms, including nausea, vomiting, chest pain, shortness of breath, fevers, rigors associat ed with it. He states that he has been seen by multiple different pain specialists in the past. He has been treated with a combination of morphine extended release and short-acting morphine and was switched per insurance reasons to methadone and OxyContin immediate release. He states that with th at regimen, he has done reasonably well over the years. Patient states that he does have radiation to bilateral lower extremities. Once again there are no warning signs, which are associated with i t. His pain is alleviated with his current pain medications. He states that his pain is a 5/10 wit h treatment as an outpatient and 5/10 as his worst pain, and 90% of his pain is alleviated with his current pain management protocol. He functions well with his current pain medications. There are no psychosocial issues or mood issues or sleep issues. His sleep pattern is good. His overall functi oning is poor secondary to underlying chronic medical problems, as well as morbid obesity. Denies n ausea, vomiting, constipation, itching, mental cloudiness. There is no history of drug overdose, re creational drug use. There is no history of over sedation purposefully, negative mood changes or in toxication. No history of recent dose escalation without authorizations. According to patient, the re is no history of stolen or lost medications. He does use not use medications for stressors. He does not use or abuse, alcohol or illicit drugs. Overall side effects are none. The patient overa ll has benefit from his outpatient use of medications, which is once again methadone and OxyContin. MEDICATIONS: Please refer to reconciliation sheet. ALLERGIES: NO KNOWN DRUG ALLERGIES. PAST MEDICAL HISTORY: Major medical problems are extensive. This gentleman has a history of cirrho sis. 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 He has been seen by hepatol ogists in the community. He has obtained treatment with antiviral drugs and according to the patien t, has negative viral counts at this time. He has not had a biopsy done in the past. He is on the list for a liver transplant. This admission was prompted by multilobar pneumonia with hemoptysis. He has been admitted. His respiratory status is stabilized since he has been hospitalized. The pat ient states he has a history of being diagnosed with renal cancer status post ablation, status post cholecystectomy and resection of small bowel and nasal surgery. SOCIAL HISTORY: Nonsmoker, nondrinker. FAMILY HISTORY: Noncontributory to this hospitalization. REVIEW OF SYSTEMS: As per history of present illness and 12-point review of systems otherwise nonco ntributory. PHYSICAL EXAMINATION: GENERAL: Shows a morbidly obese male. VITAL SIGNS: Blood pressure 141/72, pulse of 61 and regular, respirations 20, temperature 98.3 degr ees, 93% saturation on room air. HEENT: He is normocephalic and atraumatic. Anicteric, acyanotic. CHEST: Shows bilateral distant breath sounds throughout both lung marrero, inspiratory and expirator y distant crackles on examination bilaterally. COR: S1, S2, without S3, S4, murmur, gallop, rub. Normal rate, normal rhythm on examination. ABDOMEN: Huge and without gross tenderness on examination. Active bowel sounds, cannot palpate li nehemias or spleen edge. LABORATORY TESTS: No new laboratory tests are available today. His last set of chemistries: Serum sodium 140, potassium 4.7, chloride 101, bicarbonate 30, BUN of 24, creatinine 1.24, blood sugar 12 2. ASSESSMENT AND PLAN: This is a gentleman with a chronic pain syndrome secondary to lumbosacral spin e compression fractures and without radiculopathy or warning signs. I think it is prudent at this t zaira to continue on his current pain management regimen as an outpatient, although I will switch him over to Roxanol instead of oxycodone at less liver and renal side effects associated with this drug, although it is somewhat controversial the use of oxycodone at this time. Morphine is definitely le ss ____ toxic than OxyContin for ongoing treatment. Methadone is certainly acceptable. I will foll ow his clinical course while hospitalized. Dictated By: HAMIDA BERTRAND MD, LP/ASHKAN Conf#: [id number] [facility]#: [id number]
--- NOTE | 2016-08-02 13:05 | PN ---
Date/Time of Note Date/Time of Note DATE: 08/02/16 TIME: 12:58 Assessment/Plan VTE Prophylaxis VTE Prophylaxis Intervention: SCD's Lines/Catheters IV Catheter Type (from [facility] Saline Lock Urinary Cath still in place: No Assessment/Plan Assessment/Plan Assessment * Hematemesis EGD Grade I/IV esophageal varices of no clinical significance. Moderate distal esophagitis. Gastritis versus portal hypertensive gastropathy. Rule out Helicobacter pylori infection, biopsies obtained. * Cirrhosis Hx of TIPS * Pneumonia community acquired resolved Plan * stable for outpatient management Subjective 24 Hr Interval Summary Free Text/Dictation * Course reviewed with RN * patient seen and examined * EGD 08/02/2016 Grade I/IV esophageal varices of no clinical significance. Moderate distal esophagitis. Gastritis versus portal hypertensive gastropathy. Rule out Helicobacter pylori infection, biopsies obtained. Exam/Review of Systems Vital Signs Vitals Vital Signs Date Time Temp Pulse Resp B/P Pulse Ox O2 Delivery O2 Flow Rate FiO2 08/02/16 09:36 88 16 96 21 08/02/16 08:40 98.3 141/72 08/01/16 18:15 2.0 07/31/16 06:58 Room Air Intake and Output 08/01/16 08/01/16 08/02/16 15:00 23:00 07:00 Intake Total 50 ml 1090 ml Balance 50 ml 1090 ml Exam Constitutional: alert, oriented Eyes: nl conjunctiva Neck: non-tender, supple Respiratory: clear to auscultation, normal air movement Cardiovascular: nl pulses, regular rate and rhythm Gastrointestinal: non-tender, soft Musculoskeletal: nl extremities to inspection, nl gait and stance Results Result Diagram: 08/01/16 0435 08/01/16 0435 Results 24 hrs Laboratory Tests Test 08/02/16 08:32 08/02/16 12:10 Bedside Glucose 106 179 Medications Medications Current Medications Ondansetron HCl (Zofran Inj) 4 mg Q6H PRN IV NAUSEA AND/OR VOMITING Last administered on 07/31/16 21:00; Admin Dose 4 MG; Start 07/27/16 at 22:00 Pantoprazole 40 mg 40 mg BID@06,18 IV Last administered on 08/02/16 05:31; Admin Dose 40 MG; Start 07/28/16 at 06:00 Levofloxacin/ Dextrose (Levaquin 750 Mg/ D5W 150 ml (Pmx)) 150 ml @ 100 mls/hr Q24H IVPB Last administered on 08/01/16 22:58; Admin Dose 100 MLS/HR; Start 07/27/16 at 23:00 Diagnostic Test (Pha) (Accu-Chek) 1 ea 02 XX ; Start 07/29/16 at 02:00 Miscellaneous Information 1 ea NOTE XX ; Start 07/28/16 at 14:00 Glucose (Glutose) 15 gm Q15M PRN PO DECREASED GLUCOSE; Start 07/28/16 at 14:00 Glucose (Glutose) 22.5 gm Q15M PRN PO DECREASED GLUCOSE; Start 07/28/16 at 14:00 Dextrose (D50w Syringe) 25 ml Q15M PRN IV DECREASED GLUCOSE; Start 07/28/16 at 14:00 Dextrose (D50w Syringe) 50 ml Q15M PRN IV DECREASED GLUCOSE; Start 07/28/16 at 14:00 Glucagon (Glucagen) 1 mg Q15M PRN IM DECREASED GLUCOSE; Start 07/28/16 at 14:00 Glucose (Glutose) 15 gm Q15M PRN BUCCAL DECREASED GLUCOSE; Start 07/28/16 at 14: 00 Methadone HCl (Methadone) 30 mg Q8 PO Last administered on 08/02/16 05:30; Admin Dose 30 MG; Start 07/29/16 at 22:00 Morphine Sulfate (Roxanol) 30 mg QID PRN PO PAIN Last administered on 08/02/16 04:22; Admin Dose 30 MG; Start 07/29/16 at 19:00 Clonidine (Catapres) 0.1 mg BID PO Last administered on 08/02/16 08:35; Admin Dose 0.1 MG; Start 07/30/16 at 11:00 Metoclopramide HCl 5 mg 5 mg TID PO Last administered on 08/02/16 08:34; Admin Dose 5 MG; Start 07/30/16 at 21:00 Cefepime HCl (Maxipime 1gm/50 ml (Pmx)) 50 ml @ 100 mls/hr Q12 IVPB Last administered on 08/02/16 08:35; Admin Dose 100 MLS/HR; Start 07/31/16 at 01:00 Lactulose (Enulose) 10 gm Q8 PO Last administered on 08/02/16 05:31; Admin Dose 10 GM; Start 08/01/16 at 22:00 MAKI GILBERT MD August 02, 2016 13:05
--- NOTE | 2016-08-02 16:17 | DS ---
Date/Time of Note Date/Time of Note DATE: 08/02/16 TIME: 16:03 Discharge Summary Admission/Discharge Info Admit Date/Time July 27, 2016 at 19:18 Discharge Date/Time Final Diagnosis 1. Community-acquired pneumonia. 2. hemoptysis 3. Acute on likely chronic kidney disease. 4. Type 2 diabetes. 5. thrombocytopenia likely secondary to liver cirrhosis. 6. Normocytic normochromic anemia. 7. 9 mm spiculated mass in right upper lung lobe per CT scan of the chest. 8. History of chronic pain.am. 9. Liver cirrhosis. Patient Condition: Stable Consults 1. Dr. Ynes Gruber 2. Dr. 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 He did report that he had subjective fevers for 2-3 days duration. This was also associated with occasional productive sputum. Patient did have CT scan of the chest that did show a 9 mm right upper lobe speech related nodule suspicious for neoplasm or metastasis. Additionally he had seen diffuse multilobular alveolar infiltrates compatible with pneumonia. Patient was seen by plant utilities engineer for this issue. For his community-acquired pneumonia patient was put on antibiotics. For his spiculated right 9 mm right upper lung lobe nodule he was recommended for follow-up imaging as outpatient and no plan for biopsy to be done at this time considering the size of the nodule. Patient did have EGD done status post his Sandostatin drip. Findings did show grade 1-4 esophageal varices of no clinical significance and moderate distal esophagitis as well as gastritis. Patient was optimized with superficial rate and PPI medication. Patient was otherwise optimized medically. He did have good response with antibiotic therapy for his pneumonia and his lungs did appear to improve and was titrated off O2. For his diabetes he is noted with an A1c of 6.3 and resumed on insulin regimen. He did have some acute kidney injury which she did avoid nephrotoxic medications and he was provided with IV hydration and this did improve. He did have some thrombocytopenia likely from his liver cirrhosis but no signs or symptoms of active bleed and his hemoptysis had resolved. Patient was continued on analgesics for his history of chronic pain. He also did continue him on lactulose for his history of liver cirrhosis. During his course of stay did improve. Was advised to follow-up with [facility] [employer] as outpatient. He was also instructed follow up with plant utilities engineer for further follow-up on his 9 mm lung nodule. The plan of care was discussed with the patient and patient did verbalize his understanding. On the day of discharge patient was in stable condition Discussed plan of care with Dr. Arzate Discharge process time is 40 minutes Home Meds Active Scripts Propranolol Hcl* (Propranolol Hcl*) 40 Mg Tablet, 40 MG PO BID for 30 Days, TAB Prov:SUMANTH SOLIZ 08/02/16 Sucralfate* (Carafate*) 1 Gm Tab, 1 GM PO Q6 for 30 Days, TAB Prov:SUMANTH SOLIZ 08/02/16 Metoclopramide Hcl* (Metoclopramide Hcl*) 5 Mg Tablet, 5 MG PO TID for 30 Days, TAB Prov:REGSUMANTH CURRAN 08/02/16 [Lactulose] 20 GM/30 ML SOLN No Conflict Check, 10 GM PO Q8 for 30 Days Prov:REGSUMANTH CURRAN 08/02/16 Clonidine Hcl* (Catapres*) 0.1 Mg Tablet, 0.1 MG PO BID for 30 Days, TAB Prov:SUMANTH SOLIZ 08/02/16 Rifaximin* (Xifaxan*) 550 Mg Tablet, 550 MG PO BID for 30 Days, TAB Prov:SUMANTH SOLIZ 08/02/16 Reported Medications Methadone Hcl* (Methadone*) 10 Mg Tab, 30 MG PO TID, TAB 07/27/16 Oxycodone Hcl* (Oxycontin*) 30 Mg Tab.sr.12h, 30 MG PO QID, TAB 07/27/16 Trazodone Hcl* (Desyrel*) 150 Mg Tablet, 150 MG PO QHS Y for PRN, #30 TAB 07/27/16 Gabapentin* (Gabapentin*) 400 Mg Capsule, 400 MG PO TID, #90 CAP 07/27/16 Furosemide* (Furosemide*) 40 Mg Tablet, 40 MG PO BID, TAB 07/27/16 Discontinued Reported Medications Lactulose* (Lactulose*) 10 Gm/15 Ml Solution, 10 GM PO TID, ML 07/27/16 [ states no home meds per EMS] No Conflict Check 11/07/12 Furosemide* (Lasix* Liq) 40 Mg/4 Ml Solution, 40 MG PO PM 10/20/12 Spironolactone* (Spironolactone*) 100 Mg Tablet, 50 MG PO PM 10/20/12 Spironolactone* (Spironolactone*) 100 Mg Tablet, 100 MG PO AM 10/20/12 Morphine Sulfate (MORPHINE SULFATE) 60 Mg Tablet.er, 30 MG PO QID Y 10/20/12 Morphine Sulfate* (Regina*) 150 Mg Cap.er.pel, 150 MG PO TID 10/20/12 Propranolol Hcl* (Inderal*) 20 Mg Tab, 60 BID 10/20/12 Baclofen* (Baclofen*) 20 Mg Tablet, BID 10/20/12 Furosemide (Lasix) 20 Mg Tab, 60 AM 10/20/12 Carisoprodol* (Soma*) 350 Mg Tablet, TID 10/20/12 Morphine Sulfate (Morphine Sulfate ER) 30 Mg Tablet.er 10/20/12 [Pt Said He Has No More Meds] No Conflict Check 06/24/12 Discontinued Scripts Ondansetron Hcl* (Zofran*) 4 Mg Tab, 4 MG PO Q4H Y for NAUSEA AND OR VOMITING, # 10 TAB Prov:JAIRO TEMPLE DO 07/18/16 Naproxen* (Naproxen*) 500 Mg Tablet, 500 MG PO BID Y for PAIN, #20 TAB Prov:JAIRO TEMPLE DO 07/18/16 Hydrocodone/Acetaminophen (Walton 5-325 Tablet) 1 Each Tablet, 1 EACH PO Q6, #14 TAB Prov:JAIRO TEMPLE DO 07/18/16 Follow-up Plan CONDITION Patient Condition: Stable HOME CARE INSTRUCTIONS: Diet Instructions: Reduced SodiumSpecial Diet: Diabeic Carb Count FOLLOW UP/APPOINTMENTS Appointments 1. Follow up with Dr. Ynes Gruber in one week 2. Follow up with Dr. Nick Dao in 2 weeks 3. Follow up with your primary care provider in 2 weeks for follow up of your lung nodule Pending Labs Laboratory Tests Test 08/02/16 08:32 08/02/16 12:10 Bedside Glucose 106mg/dL (70-220) 179mg/dL (70-220) SUMANTH SOLIZ August 02, 2016 16:17
== END 2016-08-02 15:50 | disposition home or self-care (01) | DRG 194 ==
LOC: E/R 15:16 → MS4 19:18 → MS1 07-31 06:40
PROVIDERS: ADMIT Family Medicine; ATTEND Family Medicine
PROC: 0DB68ZX Excision of Stomach, Via Natural or Artificial Opening Endoscopic, Diagnostic (ICD-10-PCS; principal; 2016-08-01 18:30)
PROC: 0DJD8ZZ Inspection of Lower Intestinal Tract, Via Natural or Artificial Opening Endoscopic (ICD-10-PCS; 2016-08-01 18:30)
DX: J18.9 Pneumonia, unspecified organism (principal); N17.9 Acute kidney failure, unspecified; D69.59 Other secondary thrombocytopenia; K74.69 Other cirrhosis of liver; N18.3 Chronic kidney disease, stage 3 (moderate); R04.2 Hemoptysis; I12.9 Hypertensive chronic kidney disease with stage 1 through stage 4 chronic kidney disease, or unspecified chronic kidney disease; E11.9 Type 2 diabetes mellitus without complications; D64.9 Anemia, unspecified; R91.8 Other nonspecific abnormal finding of lung field; K29.70 Gastritis, unspecified, without bleeding; G89.29 Other chronic pain; K20.9 Esophagitis, unspecified; Z85.528 Personal history of other malignant neoplasm of kidney; Z90.5 Acquired absence of kidney; Z86.11 Personal history of tuberculosis
CPT/HCPCS: 36415; 71010; 71250; 76700; 76705; 78582; 80048; 80053; 80061; 82140; 82270; 82962; 83036; 83605; 83735; 84100; 84484; 85014; 85018; 85025; 85378; 85610; 85730; 86850; 86900; 86901; 87040; 87522; 88305; 88312; 94640; 94664; 96374; 96375; 96376; J1800; A9540; C9113; J0692; J1815; J1956; J2270; J2354; J2405; J3370; J3475; J7030; J7040; P9047

== ENCOUNTER 2017-08-22 01:51 | Emergency (ER) | END 2017-08-22 12:08 | disposition left against medical advice (07) ==

== ENCOUNTER → 2018-02-01 | Emergency (ER) | END | disposition left against medical advice (07) ==

== ENCOUNTER 2018-03-01 17:16 | Emergency (ER) | END 2018-03-01 20:38 | disposition left against medical advice (07) ==